=== PATIENT | female | born 1960 | race Caucasian/White ===

== ENCOUNTER 2024-10-06 07:58 | Inpatient (IN) | payer OTHER, SELFPAY ==
--- OUTSIDE RECORDS SUMMARY | 2024-10-06 08:00 | XMS_ITS | Encounter Summary ---
Author Organization [facility] Address [address] [place] [address] Care Team Providers Care Blade Boner Name Role Phone Rhoda Wilder M.D. Primary Care Provider [phone] Encounter Details Date Type Department Care Team (Late st Contact Info) Description 07/16/2018 [facility] [address] [place] [phone] Virginie Ortiz C.NJimP. [address] [place] [phone] Loss Weight (Primary Dx); Loss Weight Abnormal; Fracture Lumbar First Wedge Compression Closed Initial (HCC) Social History Tobacco Use Types Packs/Day Years Used Date Smoking Tobacco: Every Day Comments Unknown Sex and Gender Information Value Date Recorded Sex Assigned at Female 07/24/2018 12:46 PM SENIOR COST ANALYST Legal Sex Female 11:04 PM SENIOR COST ANALYST Gender Identity Female 07/24/2018 12:46 PM SENIOR COST ANALYST Sexual Orientation Straight 07/24/2018 12 :46 PM SENIOR COST ANALYST documented as of this encounter Plan of Treatment Upcoming Encounters Date Type Department Care Team (Latest Contact Info) Description 10/07/2024 8:00 AM SENIOR COST ANALYST Ancillary Procedure Department of Cardiovascular Diseases in [address] [phone] Fabian Gr M.D. [address] [place] [phone] Discharge Disposition: Home or Self Care 10/11/2024 12:45 PM SENIOR COST ANALYST Office Visit Department of Family Medicine, [facility], in [address] [phone] Fabian Gr M.D. [address] [place] [phone] Discharge Disposition: Home or Self Care documented as of this encounter Visit Diagnoses Diagnosis Loss Weight- Primary Loss Weight Abnormal Fracture Lumbar First Wedge Compression Closed Initial (HCC) documented in this encounter Additional Health Concerns Infection Onset Date Last Indicated Resolved Time COVID19 Pending 07/30/2020 07/30/2020 07/30/2020 1 :38 AM SENIOR COST ANALYST COVID19 Pending 07/30/2020 07/30/2020 07/30/2020 2 :04 AM SENIOR COST ANALYST COVID19 Pending 08/17/2020 08/17/2020 08/18/2020 1 2:59 PM SENIOR COST ANALYST COVID19 Pending 11/30/2020 11/30/2020 11/30/2020 1 0:10 PM CDT COVID19 Pending 12/07/2020 12/07/2020 12/07/2020 1 0:26 PM CDT COVID19 Pending 05/07/2021 05/07/2021 05/08/2021 7 :30 AM CDT COVID19 Pending 06/02/2022 06/02/2022 06/02/2022 1 0:52 PM CDT Assessment Noted Time PHQ-9 Depression Total Score: 7 07/10/20 12 1:30 PM CDT documented as of this encounter Care Teams Blade Boner Relationship Specialty Start Date End Date Rhoda Wilder M.D. [address] [place] [phone] PCP - General Family Medicine 06/05/22 documented as of this encounter
--- OUTSIDE RECORDS SUMMARY | 2024-10-06 08:00 | XMS_ITS ---
Author Organization [facility] Address [address] [place] [address] Care Team Providers Care Heel Washer Stringing Machine Operator Name Role Phone Unavailable Unavailable Unavailable Surgery Details Not on file Complications Check Surgery Details section. Procedure Estimated Blood Loss Check Surgery Details section. Procedure Findings Check Surgery Details section. Procedure Specimens Taken Check Surgery Details section.
--- OUTSIDE RECORDS SUMMARY | 2024-10-06 08:00 | XMS_ITS | Encounter Summary ---
Author Organization [facility] Address [address] [place] [address] Care Team Providers Care Chiller Operator Name Role Phone Rhoda Wilder M.D. Primary Care Provider Reason for Visit * Reason Comments Shortness of Breath Duoneb 1 dose given by [facility] before arrival. Encounter Details Date Type Department Care Team (Late st Contact Info) Description 10/06/2024 5:18 AM SHOE SEWING MACHINE OPERATOR AND TENDER - 10/06/2024 7:22 AM [facility] Emergency [facility] [address] [place] [phone] Jesus Meneses, P.A.-C. [address] [place] [phone] Chronic Obstructive Pulmonary Disease Exacerbation (HCC) (Primary Dx) Discharge Disposition: Home or Self Care Social History Tobacco Use Types Packs/Day Years Used Date Smoking Tobacco: Some Days Cigarettes Smokeless Tobacco: Never Tobacco Cessation:Ready to Q uit: Not Asked; Counseling Given: Not Answered Alcohol Use Standard Drinks/Week Comments Not Currently 0 (1 standard drink = 0.6 oz pur e alcohol) Nutrition Answer Date Recorded Nutrition: EVOO Fat Source 13 04/11 Nutrition: Servings of Fruits/Vegetables per Day Not on file 04/11/2020 Dental Answer Date Recorded Dental: Regular Dentist Unknown 11/16/19 21 Comments Unknown Sex and Gender Information Value Date Recorded Sex Assigned at Female 07/24/2018 12:46 PM SHOE SEWING MACHINE OPERATOR AND TENDER Legal Sex Female 11:04 PM SHOE SEWING MACHINE OPERATOR AND TENDER Gender Identity Female 07/24/2018 12:46 PM SHOE SEWING MACHINE OPERATOR AND TENDER Sexual Orientation Straight 07/24/2018 12 :46 PM SHOE SEWING MACHINE OPERATOR AND TENDER documented as of this encounter Last Filed Vital Signs Vital Sign Reading Time Taken Comments Blood Pressure 147/88 10/06/2024 6:30 AM SHOE SEWING MACHINE OPERATOR AND TENDER Pulse 83 10/06/2024 6:30 AM SHOE SEWING MACHINE OPERATOR AND TENDER Temperature 36.3 C (97.3 F) 10/06/2024 5:19 AM SHOE SEWING MACHINE OPERATOR AND TENDER Respiratory Rate 18 10/06/2024 5:42 AM SHOE SEWING MACHINE OPERATOR AND TENDER Oxygen Saturation 93% 10/06/2024 6:30 AM SHOE SEWING MACHINE OPERATOR AND TENDER Inhaled Oxygen Concentration - - Weight 40 kg (88 lb 2.9 oz) 10/06/2024 5:[address] Height - - Body Mass Index 16.58 08/19/2024 3:50 PM SHOE SEWING MACHINE OPERATOR AND TENDER documented in this encounter Discharge Instructions * Discharge Instructions* Jesus Meneses P.A.-C. - 10/06/2024 5:37 AM SHOE SEWING MACHINE OPERATOR AND TENDER You appear to have suffered from a COPD exacerbation. You are being placed on antibiotic and prednisone. Please continue to use your home medications as prescribed. Please follow up with your primarycare provider. Please return to the ER if new symptoms develop, current symptoms worsen, or you becomes concerned. SEWING MACHINE OPERATOR AND TENDER * Attachments The following attachments cannot be sent through Care Everywhere. * Chronic Obstructive Pulmonary Disease Exacerbation (Pashto) documented in this encounter Medications at Time of Discharge albuterol (Ventolin HFA) 90 mcg/actuation inhalerIndication s:Chronic Obstructive Pulmonary Disease (HCC) Inhale 1-2 puffs every 4 (four) hours as needed for wheezing. 54 g 3 07/28/2024 albuterol 2.5 mg /3 mL nebulizer solutionIndicatio ns:Chronic Obstructive Pulmonary Disease (HCC) Inhale 3 mL (2.5 mg total) by nebulization every 6 (six) hours as needed for wheezing or shortness of breath. 1080 mL 3 10/17/2023 budesonide (Pulmicort) 0.5 mg/2 mL nebulizer solution Inhale 2 mL (0.5 mg total) by nebulization 2 (two) times a day. 360 mL 3 08/19/2024 cyclobenzaprine (FlexeriL) 10 mg tabletIndications :Pain Low Back Unspecified,Pain Cervical Take 1 tablet (10 mg total) by mouth 3 (three) times a day. 270 tablet 08/19/2024 diphenhydrAMINE (BENADRYL) 25 mg tablet Take 1 tablet by mouth at bedtime. 05/30/2009 docusate sodium (COLACE) 100 mg capsuleIndication s:Constipation Take 1 capsule (100 mg total) by mouth daily. 90 capsule 3 05/29/2023 doxycycline monohydrate (Monodox) 100 mg capsuleIndication s:Chronic Obstructive Pulmonary Disease Exacerbation (HCC) Take 1 capsule (100 mg total) by mouth 2 (two) times a day before morning and evening meals for 7 days. 14 capsule 10/06/2024 5 gabapentin (NEURONTIN) 100 mg capsuleIndication s:Pain Low Back Unspecified,Pain Cervical take one capsule by mouth three times a day 270 capsule 3 10/17/2023 guaiFENesin (MUCINEX) 600 mg 12 hr tabletIndications :Chronic Obstructive Pulmonary Disease (HCC) Take 1 tablet (600 mg total) by mouth 2 (two) times a day. 180 tablet 3 05/29/2023 ibuprofen 600 mg tablet Take 1 tablet (600 mg total) by mouth every 6 (six) hours as needed for pain. 120 tablet 3 08/19/2024 5 ipratropium-albut Otis (DuoNeb) 0.5-2.5 mg/3 mL nebulizer solution Inhale 3 mL by nebulization 4 (four) times a day. 360 mL 11 08/19/2024 5 LORazepam (ATIVAN) 0.5 mg tablet Take 1 tablet by mouth at bedtime as needed. 03/02/2016 predniSONE (Deltasone) 20 mg tablet Take 1 tablet (20 mg total) by mouth daily for 5 days. 5 tablet 10/06/2024 5 rOPINIRole (Requip) 0.5 mg tablet Take 1 tablet (0.5 mg total) by mouth daily. 30 tablet 11 08/19/2024 5 documented as of this encounter ED Notes * Jesus Meneses P.A.-C. - 10/06/2024 6:51 AM CST SUBJECTIVE CHIEF COMPLAINT/REASON FOR VISIT Shortness of Breath (Duoneb 1 dose given by [facility] before arrival.) HISTORY OF PRESENT ILLNESS 64-year-old female presents ER via EMS with complaints of shortness of breath. Patient has history of COPD and had significant improvement after administration of DuoNeb by EMS in route. Patient states feeling improved after this treatment. She denies fever, chills, nausea, vomiting, diarrhea, chest pain, orthopnea, dyspnea on exertion. History provided by: Patient and EMS personnel REVIEW OF SYSTEMS All pertinent systems reviewed and are negative except as discussed in HPI OBJECTIVE Initial Vitals Temperature 10/06/24 0519 36.3 ??C Pulse Rate 10/06/24 0519 82 Heart Rate -- Resp Rate 10/06/24 0519 20 Blood Pressure 10/06/24 0519 (!) 182/95 SpO2 10/06/24 0519 100 % Pain Score 10/06/24 0521 7 PHYSICAL EXAMINATION Constitutional: Nursing note and vitals reviewed. HENT: Head: Normocephalic and atraumatic. Nose: Nose normal. Mouth/Throat: Oropharynx is clear and moist. Mucous membranes are moist. Neck: Neck supple. Cardiovascular: Normal rate, regular rhythm, S1 normal, S2 normal and normal heart sounds. Pulmonary/Chest: Effort normal. She has wheezes. Patient speaks in full sentences without labored respirations. She does have faint expiratory wheezes bilaterally. No respiratory distress. Abdominal: Soft. Bowel sounds are normal. There is no abdominal tenderness. Musculoskeletal: Cervical back: Neck supple. Neurological: Alert and oriented to person, place, and time. Skin: Skin is warm. ASSESSMENT/PLAN Assessment and Plan Patient appears well. She appears significantly improved after DuoNeb via EMS in route to our facility. She does have DuoNebs available at home. Patient is concerned that she is having more and more difficulties caring for herself at home. She is currently working with a behavioral health case manager to inquire about moving into a snf. Based on her clinical presentation at this time I do not have a medical reason to admit her to the hospital. This may change and we have discussed return ER warnings. I encouraged the patient and her daughter to continue to work with her behavioral health case manager to facilitate finding the best living situation for her. At this time she does appear safe to be discharged back to home. Patient's daughter says that her uncle he is on his way to pick her up from the emergency department.. I reviewed the following external records: office records, primary care records and prior outpatient labs. Final Diagnoses: as of 10/06/24 0651 Chronic Obstructive Pulmonary Disease Exacerbation (HCC) Jesus Meneses P.A.-C. 10/06/24 0654 SEWING MACHINE OPERATOR AND TENDER documented in this encounter Plan of Treatment Upcoming Encounters Date Type Department Care Team (Latest Contact Info) Description 10/07/2024 8:00 AM SHOE SEWING MACHINE OPERATOR AND TENDER Ancillary Procedure Department of Cardiovascular Diseases in [address] [phone] Fabian Gr M.D. [address] [place] [phone] Discharge Disposition: Home or Self Care 10/11/2024 12:45 PM SHOE SEWING MACHINE OPERATOR AND TENDER Office Visit Department of Family Medicine, [facility], in [address] [phone] Fabian Gr M.D. [address] [place] [phone] Discharge Disposition: Home or Self Care documented as of this encounter Visit Diagnoses Diagnosis Chronic Obstructive Pulmonary Disease Exacerbation (HCC)- Primary documented in this encounter Administered Medications Inactive Administered Medications - up to 3 most recent administrations Medication Order MAR Action Action Date Dose Rate Site dexAMETHasone tablet 10 mg (Decadron) 10 mg, oral, Once, On Fri10/06/24 at 0536, For 1 dose Given 10/06/2024 5:38 AM SHOE SEWING MACHINE OPERATOR AND TENDER 10 mg documented in this encounter Active and Recently Administered Medications Times are shown in SHOE SEWING MACHINE OPERATOR AND TENDER. Scheduled Medication Order 10/04/2024 10/05/2024 10/06/2024 dexAMETHasone tablet 10 mg (Decadron) (COMPLETED) 10 mg, oral, Once, On Fri10/06/24 at 0536, For 1 dose 0538 (Given - Provid er: Franklyn Santoro R.N.) documented in this encounter Additional Health Concerns Assessment Noted Time PHQ-9 Depression Total Score: 7 07/10/20 12 1:30 PM CDT documented as of this encounter Care Teams Chiller Operator Relationship Specialty Start Date End Date Rhoda Wilder M.D. [id number] [phone] PCP - General Family Medicine 06/05/22 documented as of this encounter
--- OUTSIDE RECORDS SUMMARY | 2024-10-06 08:00 | XMS_ITS | Referral Summary ---
Author Organization [facility] Address [address] [place] [address] Care Team Providers Care Feeder Operator Name Role Phone Rhoda Wilder M.D. Primary Care Provider [phone] Source Comments Patient records contain information from all sites at [facility]. For routine questions regarding patient records, call [phone] during business hours, M-F 8:00 AM - 5:00 PM Central Time. Record requests for emergency care only can be directed to [phone] at any time.[facility] Encounters Date Type Department Care Team Description 10/06/2024 5:18 AM NEWS CLERK - 10/06/2024 7:22 AM [facility] Emergency [place] [facility] [address] [place] [phone] Jesus Meneses, P.A.-C. Chronic Obstructive Pulmonary Disease Exacerbation (HCC) (Primary Dx) Discharge Disposition: Home or Self Care 08/19/2024 4:44 PM NEWS CLERK - 08/19/2024 11:59 PM NEWS CLERK Hospital Encounter Department of Laboratory Medicine in [address] [phone] Fabian Gr M.D. Chronic Diastolic (Congestive) Heart Failure (HCC); Tachycardia Supraventricular Paroxysmal (HCC) Discharge Disposition: Home or Self Care 08/19/2024 3:45 PM NEWS CLERK Office Visit Department of Family Medicine, [facility], in [address] [phone] Fabian Gr M.D. Chronic Respiratory Failure With Hypoxia (HCC) (Primary Dx); Chronic Obstructive Pulmonary Disease (HCC); Malnutrition Moderate Protein-Calorie (HCC); Arthritis Rheumatoid (HCC); Chronic Diastolic (Congestive) Heart Failure (HCC); Other Stimulant Abuse Uncomplicated (HCC); Tachycardia Supraventricular Paroxysmal (HCC); Pain Low Back Unspecified; Pain Cervical; Pain Teeth Discharge Disposition: Home or Self Care 07/28/2024 Refill Department of Family Medicine, [facility], [address] [phone] Rhoda Wilder M.D. Med Refill 07/28/2024 Refill Department of [facility], [facility], [address] [phone] Rhoda Wilder M.D. Med Refill from Last 3 Months Allergies Active Allergy Reactions Criticality Noted Date Comments Amitriptyline Other (see comments) 07/29/2020 Medications * This document contains information received from the source organization and may not represent a complete record from that organization. diphenhydrAMINE (BENADRYL) 25 mg tablet Take 1 tablet by mouth at bedtime. 9 Active LORazepam (ATIVAN) 0.5 mg tablet Take 1 tablet by mouth at bedtime as needed. 6 Active docusate sodium (COLACE) 100 mg capsuleIndicatio ns:Constipation Take 1 capsule (100 mg total) by mouth daily. 90 capsule 3 3 Active guaiFENesin (MUCINEX) 600 mg 12 hr tabletIndication s:Chronic Obstructive Pulmonary Disease (HCC) Take 1 tablet (600 mg total) by mouth 2 (two) times a day. 180 tablet 3 3 Active gabapentin (NEURONTIN) 100 mg capsuleIndicatio ns:Pain Low Back Unspecified,Pain Cervical take one capsule by mouth three times a day 270 capsule 3 4 Active albuterol 2.5 mg /3 mL nebulizer solutionIndicati ons:Chronic Obstructive Pulmonary Disease (HCC) Inhale 3 mL (2.5 mg total) by nebulization every 6 (six) hours as needed for wheezing or shortness of breath. 1080 mL 3 4 Active albuterol (Ventolin HFA) 90 mcg/actuation inhalerIndicatio ns:Chronic Obstructive Pulmonary Disease (HCC) Inhale 1-2 puffs every 4 (four) hours as needed for wheezing. 54 g 3 4 Active cyclobenzaprine (FlexeriL) 10 mg tabletIndication s:Pain Low Back Unspecified,Pain Cervical Take 1 tablet (10 mg total) by mouth 3 (three) times a day. 270 tablet 4 Active budesonide (Pulmicort) 0.5 mg/2 mL nebulizer solution Inhale 2 mL (0.5 mg total) by nebulization 2 (two) times a day. 360 mL 3 4 Active ibuprofen 600 mg tablet Take 1 tablet (600 mg total) by mouth every 6 (six) hours as needed for pain. 120 tablet 3 4 025 Active rOPINIRole (Requip) 0.5 mg tablet Take 1 tablet (0.5 mg total) by mouth daily. 30 tablet 11 4 025 Active ipratropium-albu teroL (DuoNeb) 0.5-2.5 mg/3 mL nebulizer solution Inhale 3 mL by nebulization 4 (four) times a day. 360 mL 11 4 025 Active predniSONE (Deltasone) 20 mg tablet Take 1 tablet (20 mg total) by mouth daily for 5 days. 5 tablet 5 025 Active doxycycline monohydrate (Monodox) 100 mg capsuleIndicatio ns:Chronic Obstructive Pulmonary Disease Exacerbation (HCC) Take 1 capsule (100 mg total) by mouth 2 (two) times a day before morning and evening meals for 7 days. 14 capsule 5 025 Active Active Problems Problem Noted Date Diagnosed Date Appendectomy Status Post 05/29/2023 Arthritis Rheumatoid 05/29/2023 Nodule Pulmonary Solitary 05/29/2023 Malnutrition Moderate Protein-Calorie 05/29/2023 Tachycardia Supraventricular Paroxysmal 05/29/20 23 Chronic Diastolic (Congestive) Heart Failure Other Stimulant Abuse Uncomplicated 05/29/2023 Tonsillectomy Status Post 05/29/2023 Anxiety 05/29/2023 Hysterectomy Status Post 05/29/2023 Chronic Respiratory Failure With Hypoxia 023 Macrocytosis 05/29/2023 Hyperglycemia 07/30/2020 Leukocytosis 07/29/2020 Hypercapnia 07/29/2020 Pain Cervical 02/26/2018 Spondylolysis Acquired 01/05/2018 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 Gastroesophageal Reflux Disease Without Esophagi tis 03/31/2017 Osteoarthritis 10/21/2016 Adjustment Disorder 11/16/2015 Pain Low Back Unspecified 09/20/2015 Myalgia 03/03/2015 Chronic Obstructive Pulmonary Disease 01/25/2014 Overview (07/29/2020): Emphysema NOS Smoking Tobacco Use Personal History 07/10/2012 Overview (07/29/2020): date of onset unknown, smokes 1/ ppd Fibromyalgia 01/23/2012 Hemorrhoids Internal 06/15/2010 Restless Leg Syndrome 03/13/2010 Hepatitis C 08/28/2009 Abuse Tobacco Smoking 05/30/2009 Asthma Exercise Induced Bronchospasm 05/23/2003 Resolved Problems Problem Noted Date Diagnosed Date Resolved Date Tobacco Use 05/29/2023 05/29/2023 Chronic Obstructive Pulmonar y Disease Exacerbation 07/30/2020 05/29/2023 Respiratory Failure With Hypoxia 07/29/2020 07/30/2020 Tachypnea 07/29/2020 05/29/2023 Shortness Of Breath 07/29/2020 05/29/20 23 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 Cough Unspecified Type 06/24/201405/29 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 09/12/2021 Hysterectomy Non Malignant Status Post 08/04/2007 05/29/2023 Hepatitis C 01/20/2004 05/29/2023 Overview (07/29/2020): Chronic hepatitis C Immunizations Immunization Administration Dates Next Due H1N1 All Forms 08/28/2009 HepA Adult 05/29/2023 Influenza, Seasonal, Injectable 06/25/2016 PCV20 05/29/2023 Td Preservative Free (TENIVA C, DECAVAC) 09/15/1997 Td, (Adult) Unspecified 09/15/1997 Tdap 06/24/2014,03/08/2011 influenza trivalent vaccine (6 months and older)(PF) 07/13/2013,10/16/2012,09/11/2011,2009 influenza vaccine quad (FLUZONE/FLUARIX) (6 months and older)(PF) 07/30/2020,05/29/2017,09/20/2015 Social History Tobacco Use Types Packs/Day Years [...] Sex Assigned at Female 07/24/2018 12:46 PM NEWS CLERK Legal Sex Female 11:04 PM NEWS CLERK Gender Identity Female 07/24/2018 12:46 PM NEWS CLERK Sexual Orientation Straight 07/24/2018 12 :46 PM NEWS CLERK Last Filed Vital Signs Vital Sign Reading Time Taken Comments Blood Pressure 147/88 10/06/2024 6:30 AM NEWS CLERK Pulse 83 10/06/2024 6:30 AM NEWS CLERK Temperature 36.3 C (97.3 F) 10/06/2024 5:19 AM NEWS CLERK Respiratory Rate 18 10/06/2024 5:42 AM NEWS CLERK Oxygen Saturation 93% 10/06/2024 6:30 AM NEWS CLERK Inhaled Oxygen Concentration - - Weight 40 kg (88 lb 2.9 oz) 10/06/2024 5:[address] Height 155.3 cm (5' 1.14) 08/19/2024 3:50 PM CS T Body Mass Index 16.58 08/19/2024 3:50 PM NEWS CLERK Plan of Treatment Upcoming Encounters Date Type Department Care Team (Latest Contact Info) Description 10/07/2024 8:00 AM NEWS CLERK Ancillary Procedure Department of Cardiovascular Diseases in [address] [phone] Fabian Gr M.D. [address] [place] [phone] Discharge Disposition: Home or Self Care 10/11/2024 12:45 PM NEWS CLERK Office Visit Department of Family Medicine, [facility], in [address] [phone] Fabian Gr M.D. [address] [place] [phone] Discharge Disposition: Home or Self Care Procedures Procedure Name Priority Date/Time Associated Diagnosis Comments THYROID-STIMULATING HORMONE-SENSITIVE (S-TSH) Routine 08/19/2024 4:51 PM NEWS CLERK Tachycardia Supraventricular Paroxysmal (HCC) COMPREHENSIVE METABOLIC PANEL, S/P Routine 08/19/2024 4:51 PM NEWS CLERK Chronic Diastolic (Congestive) Heart Failure (HCC) CBC WITH DIFFERENTIAL, B Routine 08/19/2024 4:51 PM NEWS CLERK Chronic Diastolic (Congestive) Heart Failure (HCC) BI BREAST SCREENING BILATERAL WITH TOMOSYNTHESIS RAD - Routine (most inpatients and all outpatients) 12/31/2021 1:34 PM CDT Screening Mammogram Breast Cancer LIPID PANEL, S Routine 09/12/2021 3:04 PM NEWS CLERK Chronic Obstructive Pulmonary Disease Exacerbation (HCC) Cough Unspecified Type Screening Lipid from Last 3 Months or Most Recently Relevant to Health Maintenance Results * (ABNORMAL) CBC with Differential, Blood (08/19/2024 4:51 PM NEWS CLERK) Hemoglobin 13.7 11.6 - 15.0 g/dL 08/19/2024 5:24 PM NEWS CLERK CNFL Hematocrit 44.0 35.5 - 44.9 % 08/19/2024 5:24 PM NEWS CLERK [facility] Erythrocytes 4.45 3.92 - 5.13 x10(12)/L 08/19/2024 5:24 PM NEWS CLERK CN[facility] MCV 98.9(H) 78.2 - 97.9 fL 08/19/2024 5:24 PM NEWS CLERK CN[facility] RBC Distrib Width 12.1(L) 12.2 - 16.1 % 08/19/2024 5:24 PM NEWS CLERK CN[facility] Platelet Count 223 157 - 371 x10(9)/L 08/19/2024 5:24 PM NEWS CLERK CN[facility] Leukocytes 7.8 3.4 - 9.6 x10(9)/L 08/19/2024 5:24 PM NEWS CLERK CN[facility] Neutrophils 4.67 1.56 - 6.45 x10(9)/L 08/19/2024 5:24 PM NEWS CLERK CN[facility] Lymphocytes 1.90 0.95 - 3.07 x10(9)/L 08/19/2024 5:24 PM NEWS CLERK CN[facility] Monocytes 0.66 0.26 - 0.81 x10(9)/L 08/19/2024 5:24 PM NEWS CLERK CNFL Eosinophils 0.53(H) 0.03 - 0.48 x10(9)/L 08/19/2024 5:24 PM NEWS CLERK CN[facility] Basophils 0.05 0.01 - 0.08 x10(9)/L 08/19/2024 5:24 PM NEWS CLERK CN[facility] Blood (Blood, Venous) 08/19/2024 4:51 PM NEWS CLERK 08/19/2024 4:53 PM NEWS CLERK us Fabian Gr M.D. LAB BLOOD ADD-ON Final Re sult [facility] [address] [place] [phone], [facility] in [address] [address] * S-TSH (Thyroid-Stimulating Hormone - Sensitive) (08/19/2024 4:51 PM NEWS CLERK) [facility] TSH, Sensitive 2.2 0.3 - 4.2 mIU/L 08/19/2024 5:22 PM NEWS CLERK CN[facility] Blood (Blood, Venous) 08/19/2024 4:51 PM NEWS CLERK 08/19/2024 4:53 PM NEWS CLERK us Fabian Gr M.D. LAB BLOOD ADD-ON Final Re sult [facility] [address] [place] [phone], [facility] CN[facility] in [address] [address] * (ABNORMAL) Comprehensive Metabolic Panel (08/19/2024 4:51 PM NEWS CLERK) Potassium, P 3.8 3.6 - 5.2 mmol/L 08/19/2024 5:11 PM NEWS CLERK CNFL Sodium, P 137 135 - 145 mmol/L 08/19/2024 5:11 PM NEWS CLERK CNFL Chloride, P 94(L) 98 - 107 mmol/L 08/19/2024 5:11 PM NEWS CLERK CN[facility] Bicarbonate, P 37(H) 22 - 29 mmol/L 08/19/2024 5:11 PM NEWS CLERK CN[facility] Anion Gap, P 6(L) 7 - 15 08/19/2024 5:11 PM NEWS CLERK CN[facility] BUN (Blood Urea Nitrogen), P 10 6 - 21 mg/dL 08/19/2024 5:11 PM NEWS CLERK CNFL Creatinine 0.45(L) 0.59 - 1.04 mg/dL 08/19/2024 5:11 PM NEWS CLERK CN[facility] Estimated GFR (eGFR) >90 >=60 mL/min/BS A 08/19/2024 5:11 PM NEWS CLERK CNFL Comment: Estimated GFR calculated using the 2020 CKD_EPI creatinine equation. Calcium, Total, P 9.5 8.8 - 10.2 mg/dL 08/19/2024 5:11 PM NEWS CLERK CNFL Glucose, P 158(H) 70 - 140 mg/dL 08/19/2024 5:11 PM NEWS CLERK CN[facility] Protein, Total, P 7.5 6.3 - 7.9 g/dL 08/19/2024 5:11 PM NEWS CLERK CNFL Albumin, P 4.2 3.5 - 5.0 g/dL 08/19/2024 5:11 PM NEWS CLERK CNFL Aspartate Aminotransferase (AST), P 22 8 - 43 U/L 08/19/2024 5:11 PM NEWS CLERK CNFL Alkaline Phosphatase, P 88 35 - 104 U/L 08/19/2024 5:11 PM NEWS CLERK CNFL Alanine Aminotransferase (ALT), P 20 7 - 45 U/L 08/19/2024 5:11 PM NEWS CLERK CN[facility] Bilirubin, Total, P <0.2 0.0 - 1.2 mg/dL 08/19/2024 5:11 PM NEWS CLERK CN[facility] Blood (Blood, Venous) 08/19/2024 4:51 PM NEWS CLERK 08/19/2024 4:53 PM NEWS CLERK us Fabian Gr M.D. LAB BLOOD ADD-ON Final Re sult Performing Organization Address City/State/[facility] Co de Phone Number [facility] [address] [place] [phone], [facility] CN[facility] in [address] [address] * BI Breast Screening Bilateral with Tomosynthesis (12/31/2021 1:34 PM CDT) Anatomical Region Laterality Modality Breast, Breast Imaging RST L OS, Breast Imaging ARZ LOS, Breast Imaging FLA LOS Bilateral Mammography 12/31/2021 4:01 PM CDT Impressions 12/31/2021 4:05 PM CDT Negative. RECOMMENDATION: Annual Screening Mammogram ASSESSMENT: BI-RADS: 1: Negative. Narrative 12/31/2021 4:05 PM CDT EXAM: BI BREAST SCREENING BILATERAL WITH TOMOSYNTHESIS Current study was evaluated with a Computer Aided Detection (CAD) system. INDICATION: Screening mammogram. COMPARISON: Prior exam(s) were available and reviewed for comparison. DENSITY: b. There are scattered areas of fibroglandular density. FINDINGS: No mammographic findings of malignancy. Procedure Note Manuel Montiel M.D. - 12/31/2021 EXAM: BI BREAST SCREENING BILATERAL WITH TOMOSYNTHESIS Current study was evaluated with a Computer Aided Detection (CAD) system. INDICATION: Screening mammogram. COMPARISON: Prior exam(s) were available and reviewed for comparison. DENSITY: b. There are scattered areas of fibroglandular density. FINDINGS: No mammographic findings of malignancy. IMPRESSION: Negative. RECOMMENDATION: Annual Screening Mammogram ASSESSMENT: BI-RADS: 1: Negative. us Nena Wood IMG BI PROCEDURES Final Resu lt * (ABNORMAL) Lipid Panel (09/12/2021 3:04 PM NEWS CLERK) Cholesterol, Total 229(H) mg/dL 2020 3:42 PM NEWS CLERK CNFL Comment: ----REFERENCE VALUE---- Desirable: < 200 Borderline high: 200 - 239 High: > or = 240 Triglycerides 77 mg/dL 09/12/2021 3:42 PM NEWS CLERK CNFL Comment: ----REFERENCE VALUE---- Normal: <150 Borderline high: 150-199 High: 200-499 Very high: > or =500 Cholesterol, HDL 143 >=50 mg/dL 09/12/20 4:32 PM NEWS CLERK CNFL Calculated LDL 71 mg/dL 09/12/2021 4:32 PM NEWS CLERK CNFL Comment: ----REFERENCE VALUE---- Desirable: <100 mg/dL Above Desirable: 100-129 mg/dL Borderline High: 130-159 mg/dL High: 160-189 mg/dL Very High: >=190 mg/dL Cholesterol, Non-HDL, Calculated 86 mg/dL 09/12/2021 4:32 PM NEWS CLERK CNFL Comment: ----REFERENCE VALUE---- Desirable: <130 Above Desirable: 130-159 Borderline high: 160-189 High: 190-219 Very high: > or =220 Blood (Blood, Venous) 09/12/2021 3:04 PM NEWS CLERK 09/12/2021 3:06 PM NEWS CLERK us Nena Wood LAB BLOOD ADD-ON Final Resul t [facility] [address] [place] [phone], [facility] [place] [address] [place] Reyna [address] from Last 3 Months or Most Recently Relevant to Health Maintenance Insurance [facility] [place] [address] [place] [address] Advance Directives For more information, please contact: [phone] * Full Code (Latest Code Status on File) Date Activated Date Inactivated Comments 07/30/2020 12:51 AM 07/30/2020 6:22 PM Question Answer Comments Full Code: Discussed Care Teams Feeder Operator Relationship Specialty Start Date End Date Rhoda Wilder M.D. [address] [place], [place] [address]D[place]Y Toribio [phone] PCP - General Family Medicine 06/05/22
--- OUTSIDE RECORDS SUMMARY | 2024-10-06 08:00 | XMS_ITS | Encounter Summary ---
Author Organization [facility] Address [address] [place] [address] Care Team Providers Care Roller Helper Name Role Phone Rhoda Wilder M.D. Primary Care Provider [phone] Encounter Details Date Type Department Care Team (Late st Contact Info) Description 09/18/[address] [facility] [address] [place] [phone] Virginie Ortiz C.NJimP. [address] [place] [phone] Fracture Lumbar First Wedge Compression Closed Initial (HCC) (Primary Dx); Loss Weight Social History Tobacco Use Types Packs/Day Years Used Date Smoking Tobacco: Every Day Comments Unknown Sex and Gender Information Value Date Recorded Sex Assigned at Female 07/24/2018 12:46 PM POLE SHAVER Legal Sex Female 11:04 PM POLE SHAVER Gender Identity Female 07/24/2018 12:46 PM POLE SHAVER Sexual Orientation Straight 07/24/2018 12 :46 PM POLE SHAVER documented as of this encounter Plan of Treatment Upcoming Encounters Date Type Department Care Team (Latest Contact Info) Description 10/07/2024 8:00 AM POLE SHAVER Ancillary Procedure Department of Cardiovascular Diseases in [address] [phone] Fabian Gr M.D. [address] [place] [phone] Discharge Disposition: Home or Self Care 10/11/2024 12:45 PM POLE SHAVER Office Visit Department of Family Medicine, [facility], in [address] [phone] Fabian Gr M.D. [address] [place] [phone] Discharge Disposition: Home or Self Care documented as of this encounter Visit Diagnoses Diagnosis Fracture Lumbar First Wedge Compression Closed Initial (HCC)- Primary Loss Weight documented in this encounter Additional Health Concerns Infection Onset Date Last Indicated Resolved Time COVID19 Pending 07/30/2020 07/30/2020 07/30/2020 1 :38 AM POLE SHAVER COVID19 Pending 07/30/2020 07/30/2020 07/30/2020 2 :04 AM POLE SHAVER COVID19 Pending 08/17/2020 08/17/2020 08/18/2020 1 2:59 PM POLE SHAVER COVID19 Pending 11/30/2020 11/30/2020 11/30/2020 1 0:10 PM CDT COVID19 Pending 12/07/2020 12/07/2020 12/07/2020 1 0:26 PM CDT COVID19 Pending 05/07/2021 05/07/2021 05/08/2021 7 :30 AM CDT COVID19 Pending 06/02/2022 06/02/2022 06/02/2022 1 0:52 PM CDT Assessment Noted Time PHQ-9 Depression Total Score: 7 07/10/20 12 1:30 PM CDT documented as of this encounter Care Teams Roller Helper Relationship Specialty Start Date End Date Rhoda Wilder M.D. [address] [place] [phone] PCP - General Family Medicine 06/05/22 documented as of this encounter
--- OUTSIDE RECORDS SUMMARY | 2024-10-06 08:00 | XMS_ITS | Clinical Summary ---
Author Organization [facility] Address [address] [place] [address] Care Team Providers Care Clinical Education Assistant Name Role Phone Stephen Reyes MD Primary Care Provider [phone] Source Comments If you need additional information that is not available on Care Everywhere, please contact our Medical Records Department during business hours (Friday - Friday, 8 am - 5 pm) at . During nonbusiness hours, please contact our Trauma and Emergency Center at .[facility] Allergies No known active allergies Medications * Medications may not be up to date as of this document. Always verify current medications with the patient. hydroxychloroqui ne (PLAQUENIL-EQUIV ALENT) 200 mg tablet Take 1 Tab (200 mg) by mouth daily. 90 Tab 4 05/26/2015 Active Active Problems Problem Noted Date Diagnosed Date HCV (hepatitis C virus) s/p IFN and ribavirin Social History Tobacco Use Types Packs/Day Years Used Date Smoking Tobacco: Never Assessed Comments Unknown Sex and Gender Information Value Date Recorded Sex Assigned at Not on file Legal Sex Female 1:26 PM CDT Gender Identity Not on file Sexual Orientation Not on file Plan of Treatment Health Maintenance Due Date Last Done Comments HEPATITIS C SCREENING 1960 DEPRESSION/ANXIETY PHQ4 1972 CERVICAL CANCER SCREENING 1978 LIPID SCREEN 1978 WELLNESS VISIT 1978 DTaP/Tdap/Td Vaccine (1 - Tdap) 1979 PERTUSSIS 1979 MAMMOGRAM 2000 COLONOSCOPY 2005 DIABETES SCREENING 2005 Pneumococcal Vaccine: 50+ Ye ars (1 of 1 - PCV) 2010 SHINGLES VACCINE (SHINGRIX) (1 of 2) 2010 COVID-19 Vaccine (1 - 2023-2 5 season) 2024 Influenza Vaccine (#1) 2024 RSV Vaccines (1 - 1-dose 75+ series) 2035 HPV Vaccine Aged Out No longer eligi ble based on patient's age to complete this topic Hepatitis B Vaccine Aged Out No longe r eligible based on patient's age to complete this topic POLIO (IPV) Vaccine Aged Out No longe r eligible based on patient's age to complete this topic Pneumococcal Vaccine: Pediat rics (0 to 5 Years) and At-Risk Patients (6 to 49 Years) Aged Out No longer eligi ble based on patient's age to complete this topic Insurance [facility] Care Teams Clinical Education Assistant Relationship Specialty Start Date End Date Stephen Reyes MD PCP - General FAMILY MEDICINE 05/27/14
--- OUTSIDE RECORDS SUMMARY | 2024-10-06 08:00 | XMS_ITS | Clinical Summary ---
Author Organization [facility] Address [address] [place] [address] Care Team Providers Care Insurance Consultant Name Role Phone Rhoda Wilder M.D. Primary Care Provider [phone] Source Comments Patient records contain information from all sites at [facility]. For routine questions regarding patient records, call [phone] during business hours, M-F 8:00 AM - 5:00 PM Central Time. Record requests for emergency care only can be directed to [phone] at any time.[facility] Allergies Active Allergy Reactions Criticality Noted Date [...] Overview (07/29/2020): date of onset unknown, smokes 1/2 ppd Fibromyalgia 01/23/2012 Hemorrhoids Internal 06/15/2010 Restless [...] 01/20/2004 05/29/2023 Overview (07/29/2020): Chronic hepatitis C Encounters Date Type Department Care Team Description 10/06/2024 5:18 AM [facility] - 10/06/2024 7:22 AM [facility] Emergency [facility] [address] [place] [phone] Jesus Meneses P.A.-C. Chronic Obstructive Pulmonary Disease Exacerbation (HCC) (Primary Dx) Discharge Disposition: Home or Self Care 08/19/2024 4:44 PM [facility]LE [facility]LER - 08/19/2024 11:59 PM [facility] Hospital Encounter Department of Laboratory Medicine in [address] [phone] Fabian Gr M.D. Chronic Diastolic (Congestive) Heart Failure (HCC); Tachycardia Supraventricular Paroxysmal (HCC) Discharge Disposition: Home or Self Care 08/19/2024 3:45 PM [facility] Office Visit Department of Family [facility], [facility], in [address] [phone] Fabian Gr M.D. Chronic Respiratory Failure With Hypoxia (HCC) (Primary Dx); Chronic Obstructive Pulmonary Disease (HCC); Malnutrition Moderate Protein-Calorie (HCC); Arthritis Rheumatoid (HCC); Chronic Diastolic (Congestive) Heart Failure (HCC); Other Stimulant Abuse Uncomplicated (HCC); Tachycardia Supraventricular Paroxysmal (HCC); Pain Low Back Unspecified; Pain Cervical; Pain Teeth Discharge Disposition: Home or Self Care 07/28/2024 Refill Department of Family Medicine, [facility], in [address] [phone] Rhoda Wilder M.D. Med Refill 07/28/2024 Refill Department of Family Medicine, [facility], [address] [phone] Rhoda Wilder M.D. Med Refill from Last 3 Months Immunizations Immunization Administration Dates Next Due H1N1 All Forms 08/28/2009 HepA Adult 05/29/2023 Influenza, Seasonal, Injectable 06/25/2016 PCV20 05/29/2023 Td Preservative Free (TENIVA C, DECAVAC) 09/15/1997 Td, (Adult) Unspecified 09/15/1997 Tdap 06/24/2014,03/08/2011 influenza trivalent vaccine (6 months and older)(PF) 07/13/2013,10/16/2012,09/11/2011,2009 influenza vaccine quad (FLUZONE/FLUARIX) (6 months and older)(PF) 07/30/2020,05/29/2017,09/20/2015 Family History Medical History Relation Name Comments Cancer Father liver cancer du e to ETOH Breast cancer Father's Sister Relation Name Status Comments Father Father's Sister Social History Tobacco Use Types Packs/Day Years [...] Sex Assigned at Female 07/24/2018 12:46 PM [facility]ER Legal Sex Female 11:04 PM [facility] Gender Identity Female 07/24/2018 12:46 PM [facility] Sexual Orientation Straight 07/24/2018 12 :46 PM [facility] Last Filed Vital Signs Vital Sign Reading Time Taken Comments Blood Pressure 147/88 10/06/2024 6:30 AM [facility] Pulse 83 10/06/2024 6:30 AM [facility] Temperature 36.3 C (97.3 F) 10/06/2024 5:19 AM [facility]ER Respiratory Rate 18 10/06/2024 5:42 AM [facility]ER Oxygen Saturation 93% 10/06/2024 6:30 AM [facility] Inhaled Oxygen Concentration - - Weight 40 kg (88 lb 2.9 oz) 10/06/2024 5:[address] Height 155.3 cm (5' 1.14) 08/19/2024 3:50 PM CS T Body Mass Index 16.58 08/19/2024 3:50 PM [facility]ER Plan of Treatment Upcoming Encounters Date Type Department Care Team (Latest Contact Info) Description 10/07/2024 8:00 AM [facility] Ancillary Procedure Department of Cardiovascular Diseases in [address] [phone] Fabian Gr M.D. [address] [place] [phone] Discharge Disposition: Home or Self Care 10/11/2024 12:45 PM [facility] Office Visit Department of Family Medicine, [facility], in [address] [phone] Fabian Gr M.D. [address] [place] [phone] Discharge Disposition: Home or Self Care Health Maintenance Due Date Last Done Comments CT Colonography 1960 Cologuard 1960 FIT 1960 HIV Screening 1960 Tobacco Cessation counseling 1960 Zoster Vaccines (1 of 2) 2010 Hepatitis B Vaccines (1 of 3 - Risk 3-dose series) 2020 RSV vaccine - (32-36 weeks) or 60+ years (1 - Risk 60-74 years 1-dose series) 2020 Mammogram 12/31/2022 12/31/2021, 06/0 12/2014, 03/06/2001 Hepatitis A Vaccines (2 of 2 - Risk 2-dose series) 11/27/2023 05/29/2023 Colonoscopy 01/14/2024 01/13/2014 Colorectal Cancer Screening 01/14/2024 COVID-19 Vaccine ( season) 2024 Influenza Vaccine (#1) 2024 , 05/29/2017, 06/25/2016, Additional history exists DTaP,Tdap,and Td Vaccines (3 - Td or Tdap) 06/24/2024 06/24/2014, 03/08/2011, 09/15/1997, Additional history exists Depression Screening (Annual PHQ-2) 09/15/2024 Fasting Glucose for Diabetes Screening 08/19/2025 08/19/2024, 01/25/2024, 05/29/2023, Additional history exists Lipid (Cholesterol) Screening 09/12/2026 09/12/2021 Pneumococcal vaccine (50+ years) Completed 05/29/2023 IPV Vaccines Aged Out No longer eligi ble based on patient's age to complete this topic Procedures Procedure Name Priority Date/Time Associated Diagnosis Comments THYROID-STIMULATING HORMONE-SENSITIVE (S-TSH) Routine 08/19/2024 4:51 PM [facility] Tachycardia Supraventricular Paroxysmal (HCC) COMPREHENSIVE METABOLIC PANEL, S/P Routine 08/19/2024 4:51 PM [facility] Chronic Diastolic (Congestive) Heart Failure (HCC) CBC WITH DIFFERENTIAL, B Routine 08/19/2024 4:51 PM [facility] Chronic Diastolic (Congestive) Heart Failure (HCC) BI BREAST SCREENING BILATERAL WITH TOMOSYNTHESIS RAD - Routine (most inpatients and all outpatients) 12/31/2021 1:34 PM CDT Screening Mammogram Breast Cancer LIPID PANEL, S Routine 09/12/2021 3:04 PM [facility] Chronic Obstructive Pulmonary Disease Exacerbation (HCC) Cough Unspecified Type Screening Lipid from Last 3 Months or Most Recently Relevant to Health Maintenance Results * (ABNORMAL) CBC with Differential, Blood (08/19/2024 4:51 PM [facility]ER) Hemoglobin 13.7 11.6 - 15.0 g/dL 08/19/2024 5:24 PM [facility] Hematocrit 44.0 35.5 - 44.9 % 08/19/2024 5:24 PM [facility] Erythrocytes 4.45 3.92 - 5.13 x10(12)/L 08/19/2024 5:24 PM [facility] MCV 98.9(H) 78.2 - 97.9 fL 08/19/2024 5:24 PM [facility] RBC Distrib Width 12.1(L) 12.2 - 16.1 % 08/19/2024 5:24 PM [facility] Platelet Count 223 157 - 371 x10(9)/L 08/19/2024 5:24 PM [facility] Leukocytes 7.8 3.4 - 9.6 x10(9)/L 08/19/2024 5:24 PM [facility] CNFL Neutrophils 4.67 1.56 - 6.45 x10(9)/L 08/19/2024 5:24 PM [facility] Lymphocytes 1.90 0.95 - 3.07 x10(9)/L 08/19/2024 5:24 PM [facility] CNFL Monocytes 0.66 0.26 - 0.81 x10(9)/L 08/19/2024 5:24 PM [facility] CNFL Eosinophils 0.53(H) 0.03 - 0.48 x10(9)/L 08/19/2024 5:24 PM [facility] CNFL Basophils 0.05 0.01 - 0.08 x10(9)/L 08/19/2024 5:24 PM [facility] CN[facility] Blood (Blood, Venous) 08/19/2024 4:51 PM [facility]ER 08/19/2024 4:53 PM [facility]ER us Fabian Gr M.D. LAB BLOOD ADD-ON Final Re sult [facility] [address] [place] [address], [facility] [place] [address] * S-TSH (Thyroid-Stimulating Hormone - Sensitive) (08/19/2024 4:51 PM LADLE HANDLER) TSH, Sensitive 2.2 0.3 - 4.2 mIU/L 08/19/2024 5:22 PM [facility] Blood (Blood, Venous) 08/19/2024 4:51 PM [facility]ER 08/19/2024 4:53 PM [facility]ER us Fabian Gr M.D. LAB BLOOD ADD-ON Final Re sult [facility] [address] [place] [phone], [facility] in [address] [address] * (ABNORMAL) Comprehensive Metabolic Panel (08/19/2024 4:51 PM LADLE HANDLER) Potassium, P 3.8 3.6 - 5.2 mmol/L 08/19/2024 5:11 PM [facility]FL Sodium, P 137 135 - 145 mmol/L 08/19/2024 5:11 PM [facility] CNFL Chloride, P 94(L) 98 - 107 mmol/L 08/19/2024 5:11 PM [facility] Bicarbonate, P 37(H) 22 - 29 mmol/L 08/19/2024 5:11 PM [facility] Anion Gap, P 6(L) 7 - 15 08/19/2024 5:11 PM [facility] BUN (Blood Urea Nitrogen), P 10 6 - 21 mg/dL 08/19/2024 5:11 PM [facility] CNFL Creatinine 0.45(L) 0.59 - 1.04 mg/dL 08/19/2024 5:11 PM [facility] Estimated GFR (eGFR) >90 >=60 mL/min/BS A 08/19/2024 5:11 PM [facility] Comment: Estimated GFR calculated using the 2020 CKD_EPI creatinine equation. Calcium, Total, P 9.5 8.8 - 10.2 mg/dL 08/19/2024 5:11 PM [facility] Glucose, P 158(H) 70 - 140 mg/dL 08/19/2024 5:11 PM [facility] CNFL Protein, Total, P 7.5 6.3 - 7.9 g/dL 08/19/2024 5:11 PM [facility] CNFL Albumin, P 4.2 3.5 - 5.0 g/dL 08/19/2024 5:11 PM [facility] Aspartate Aminotransferase (AST), P 22 8 - 43 U/L 08/19/2024 5:11 PM [facility] Alkaline Phosphatase, P 88 35 - 104 U/L 08/19/2024 5:11 PM [facility] Alanine Aminotransferase (ALT), P 20 7 - 45 U/L 08/19/2024 5:11 PM [facility] CN[facility] Bilirubin, Total, P <0.2 0.0 - 1.2 mg/dL 08/19/2024 5:11 PM [facility] CN[facility] Blood (Blood, Venous) 08/19/2024 4:51 PM [facility]ER 08/19/2024 4:53 PM [facility]ER us Fabian Gr M.D. LAB BLOOD ADD-ON Final Re sult [facility] [address] [place] [id number], [facility] in [address] [address] * BI Breast Screening Bilateral with Tomosynthesis [...] Annual Screening Mammogram ASSESSMENT: BI-RADS: 1: Negative. Nena Wood IMG BI PROCEDURES Final Resu lt * (ABNORMAL) Lipid Panel (09/12/2021 3:04 PM [facility] HANDLER) Cholesterol, Total 229(H) mg/dL 2020 3:42 PM [facility] Comment: ----REFERENCE VALUE---- Desirable: < 200 Borderline high: 200 - 239 High: > or = 240 Triglycerides 77 mg/dL 09/12/2021 3:42 PM [facility] Comment: ----REFERENCE VALUE---- Normal: <150 Borderline high: 150-199 High: 200-499 Very high: > or =500 Cholesterol, HDL 143 >=50 mg/dL 09/12/20 4:32 PM [facility] CNFL Calculated LDL 71 mg/dL 09/12/2021 4:32 PM [facility] CNFL Comment: ----REFERENCE VALUE---- Desirable: <100 mg/dL Above Desirable: 100-129 mg/dL Borderline High: 130-159 mg/dL High: 160-189 mg/dL Very High: >=190 mg/dL Cholesterol, Non-HDL, Calculated 86 mg/dL 09/12/2021 4:32 PM [facility] Comment: ----REFERENCE VALUE---- Desirable: <130 Above Desirable: 130-159 Borderline high: 160-189 High: 190-219 Very high: > or =220 Blood (Blood, Venous) 09/12/2021 3:04 PM LADLE HANDLER 09/12/2021 3:06 PM LADLE HANDLER Nena Wood LAB BLOOD ADD-ON Final Resul t [facility] [address] [place] [id number], [facility] in [address] [address] from Last 3 Months or Most Recently Relevant to Health Maintenance Insurance [facility] [place] [id number] DUSTY WOODS [id number] Advance Directives For more information, please contact: [phone] * Full Code (Latest Code Status on File) Date Activated Date Inactivated Comments 07/30/2020 12:51 AM 07/30/2020 6:22 PM Question Answer Comments Full Code: Discussed Care Teams Insurance Consultant Relationship Specialty Start Date End Date Rhoda Wilder M.D. [address] [place] [address] DUSTY Reyna [phone] PCP - General Family Medicine 06/05/22
--- OUTSIDE RECORDS SUMMARY | 2024-10-06 08:01 | XMS_ITS | Continuity of Care Document ---
Author Organization [facility] Address [address] [place] [address] Phone Care Team Providers Care Merchandise Adjustment Clerk Name Role Phone No Information Unavailable Unavailable Advance Directives Directive Yes / No Effective Date File Name No Information Encounters Encounter Description Practice Location Reason(s) For Visit Diagnoses Date Provider Providers Copied on Encounter [facility], [address], [place], [address], [place] tel:[phone] No Information [phone] No Information Family History Family Member Type Diagnosis Age At Onset No Information Payers Payer name Insurance type Covered alliance party ID Authoriza mastersergio(s) [place] [employer] Insurance [id number] Social History Type Description Quantity Date Captured Comments Sex Female Smoking Status No Information Chief Complaint And Reason For Visit No Information Reason For Referral Reason For Referral No Information History Of Present Illness Encounter Date Complaint History Of Prese nt Illness No Information Functional Status Date Functional Assessmen t No Information Instructions Date Instruction Additional Infor mation No Information Assessments Type Assessment Date No Information Patient Care Teams Name Effective Dates (start - stop) Status Members No Information
[2024-10-06 08:19] VITALS: BP 142/79; PULSE 101; RESP 24; TEMP 37.1; O2SAT 97; BMI 13.8
--- NOTE | 2024-10-06 09:34 | ED_ITS ---
HPI - General Adult General Chief complaint: Shortness of Breath/Dyspnea Stated complaint: Shortness of breath Time Seen by Provider: 10/06/24 09:00 History of Present Illness HPI narrative: This 64-year-old female comes in with family members. She was seen at [facility] at 4:00 a.m. this morning, about 5 hours prior to arrival here. The patient and her family member state that she was there for about 45 minutes and was complaining of vertigo symptoms, shortness of breath, and ear pain. Family states that there was no testing or workup done and the patient was there about 45 minutes. They state that the provider did not look into her ears. The patient lives alone at home in [facility] and family members have been trying to arrange for residential care. They have not been successful in arranging this. The patient and family member state that she is unable to care for self any longer at home. She does not have enough strength to get up and walk. She is on oxygen continuously with COPD. She weighs 33 kg. Aside from her inability to function at home there are no new complaints other than the vertigo symptoms and nausea. Her vertigo is absent when remaining still but triggered with movement. She does not report a headache or hearing loss. Related Data Home Medications ?Medication ?Instructions ?Recorded ?Confirmed albuterol sulfate 2.5 mg/3 mL mg 10/06/24 (0.083 %) solution for nebulization albuterol sulfate 90 mcg/actuation inhalation 10/06/24 aerosol inhaler (Ventolin HFA) budesonide 0.5 mg/2 mL suspension mg 10/06/24 for nebulization cyclobenzaprine 10 mg tablet mg 3XD 10/06/24 docusate sodium 100 mg capsule mg PO DAILY 10/06/24 gabapentin 100 mg capsule mg 3XD 10/06/24 guaifenesin 600 mg tablet, mg PO 10/06/24 extended release 12 hr ibuprofen 600 mg tablet mg 10/06/24 ropinirole 0.5 mg tablet mg DAILY 10/06/24 Allergies Allergy/AdvReac Type Severity Reaction Status Date / Time amitriptyline Allergy Mild hallucinate Verified 10/06/24 08:31 s Review of Systems Status of ROS: Reports: 10 or more systems reviewed and unremarkable except as noted in History and below Narrative: Constitutional: No fevers. Cachectic and generalized weakness. Eyes: No discharge. No vision changes. HENT: No congestion, no sore throat, no ear pain. Cardiovascular: No chest pain, no palpitations. Respiratory: On chronic oxygen due to COPD. Gastrointestinal: No abdominal pain, no vomiting, no diarrhea. Genitourinary: No dysuria, no hematuria. Musculoskeletal: Normal range of motion. Skin: No rashes, no pruritis. Neurological: No sensory change, speech change. Vertigo symptoms as described above. Endo/Heme/Allergies: No bruising or bleeding. No polydipsia. Pysch: no suicidality, no anxiety, no insomnia. All other systems reviewed and are negative. PFSH PFSH Social History Smoking Status: Former smoker How often do you have a drink containing alcohol: never How often do you have six or more drinks on one occasion: Never AUDIT-C Alcohol total score: 0 Non-prescribed substance use: denies use service: No Exam Narrative: Exam Narrative: Constitutional: Cachectic. HEENT: Normocephalic, atraumatic. Neck: Normal range of motion. Nontender. Supple. Heart: Regular. No murmurs. Normal rate. Intact distal pulses. Lungs: Prolonged expiratory phase. Distant lung sounds. Chronic COPD on continuous oxygen by nasal cannula. Abdomen: Normal bowel sounds. Nontender. No rebound tenderness. Genitalia: Deferred. Back: No midline tenderness. Normal range of motion. Extremities: Normal range of motion. No injury. Skin: Intact. No rash. Warm. No erythema or pallor. Neurologic: Tingling sensation in her lower extremities. Alert and oriented. Generalized weakness. Psychiatric: No suicidality. No anxiety or depression. No insomnia. Nursing notes and vitals signs are reviewed. Const: Vital Signs, click to edit/add: Vital Signs - 24 hr 10/06/24 08:19 Temperature 98.8 F Pulse Rate [Pulse Oximeter] 101 H Respiratory Rate 24 Blood Pressure [Ri ght Upper Arm] 142/79 H Pulse Oximetry 97 Oxygen Delivery Me thod Room Air Course Vital Signs Vital signs: Initial Vital Signs Temperature 98.8 F 10/06/24 08:19 Temperature Source Temporal Artery Scan 10/06/24 08:19 Pulse Rate 101 H 10/06/24 08:19 Respiratory Rate 24 10/06/24 08:19 Respiratory Effort Short of Breath, Pursed Lip 10/06/24 08:19 Respiratory Depth Deep 10/06/24 08:19 Respiratory Pattern Tachypnea 10/06/24 08:19 Blood Pressure 142/79 H 10/06/24 08:19 Blood Pressure Mean 100 10/06/24 08:19 Blood Pressure Position Sitting 10/06/24 08:19 Pulse Oximetry 97 10/06/24 08:19 Oxygen Delivery Method Room Air 10/06/24 08:19 Vital Signs Temperature 98.8 F 10/06/24 08:19 Pulse Rate 101 H 10/06/24 08:19 Respiratory Rate 24 10/06/24 08:19 Blood Pressure 142/79 H 10/06/24 08:19 Pulse Oximetry 97 10/06/24 08:19 Oxygen Delivery Method Room Air 10/06/24 08:19 Temperature 98.8 F 10/06/24 08:19 Pulse Rate 101 H 10/06/24 08:19 Respiratory Rate 24 10/06/24 08:19 Blood Pressure 142/79 H 10/06/24 08:19 Pulse Oximetry 97 10/06/24 08:19 Oxygen Delivery Method Room Air 10/06/24 08:19 Medications Administered Medications: Discontinued Medications Generic Name Dose Route Start Last Admin Trade Name Chelsi PRN Reason Stop Dose Admin Meclizine HCl 25 mg 10/06/24 09:34 10/06/24 09:42 Meclizine Hcl 25 Mg Tablet PO 10/06/24 09:35 25 mg ONCE ONE Administration Ondansetron HCl 4 mg 10/06/24 09:34 10/06/24 09:42 Ondansetron Odt 4 Mg Tab PO 10/06/24 09:35 4 mg ONCE ONE Administration Medical Decision Making MDM Narrative Medical decision making narrative: This patient comes in with family members who report that she really is not able to care for herself any longer at home. They have been seeking residential placement but have not been able to make any arrangements yet. The patient has COPD and is on oxygen by nasal cannula. She does report some vertigo and nausea symptoms. She did receive an oral dose of meclizine and Zofran and these sy mptoms were significantly improved. We did consult with social media manager who made attempts at trying to place in a residential but it is very likely that this will not occur today. I did speak with Dr. Sullivan, hospitalist on-call, who agrees to observation admission. Lab Data Labs: Lab Results 10/06/24 Range/Units 12:03 WBC 5.92 (4.50-11.00) K/uL RBC 4.39 (4.00-5.20) m/uL Hgb 13.6 (12.0-16.0) gm/dL Hct 43.6 (33.0-51.0) % MCV 99 (80-100) fL MCH 31 (26-34) pg MCHC 31 L (32-36) gm/dL RDW Coeff of Timoteo 11.8 (11.5-15.5) % Plt Count 226 (140-440) K/uL Neut % (Auto) 89.2 H (42.0-72.0) % Lymph % (Auto) 6.9 L (20-44) % [place] % (Auto) 3.2 (0.0-11.0) % Eos % (Auto) 0.2 (0.0-7.0) % Baso % (Auto) 0.5 (0.0-3.0) % Neut # (Auto) 5.30 (1.7-7.0) K/uL Lymph # (Auto) 0.40 L (0.90-2.90) K/uL [place] # (Auto) 0.20 (0.00-0.90) K/UL Eos # (Auto) 0.01 (0.00-0.50) K/uL Baso # (Auto) 0.03 (0.00-0.30) K/uL Abs Immat Gran (auto) 0.00 (0.00-0.30) K/uL Imm/Tot Granulo (auto) 0.0 % Sodium 138 (135-149) mmol/L Potassium 4.6 (3.6-5.1) mmol/L Chloride 98 (96-114) mmol/L Carbon Dioxide 37 H (20-32) mmol/L Anion Gap 3 L (7-15) mEq/L BUN 15 (7-30) mg/dL Creatinine 0.4 L (0.5-1.5) mg/dL Estimated Creat Clear 29.71 Estimated GFR 110 ml/min Glucose 117 H (60-115) mg/dL Calcium 9.4 (8.4-10.6) mg/dL Discharge Plan Discharge Clinical Impression: COPD (chronic obstructive pulmonary disease), Weakness Patient Disposition: Admitted As Observation Condition: Unchanged Prescriptions: No Action cyclobenzaprine 10 mg tablet 3XD albuterol sulfate 2.5 mg /3 mL (0.083 %) solution for nebulization Patient Comments: [NO ORIGINAL SIG] ropinirole 0.5 mg tablet DAILY docusate sodium 100 mg capsule PO DAILY budesonide 0.5 mg/2 mL suspension for nebulization Patient Comments: [NO ORIGINAL SIG] gabapentin 100 mg capsule 3XD ibuprofen 600 mg tablet albuterol sulfate [Ventolin HFA] 90 mcg/actuation HFA aerosol inhaler INHALATION Patient Comments: [NO ORIGINAL SIG] guaifenesin 600 mg tablet extended release 12hr PO Follow Up/Referrals: Provider,Not a Local [Primary Care Provider] -
[2024-10-06] MEDS: MECLIZINE HCL 25 MG TABLET PO (09:42)
[2024-10-06] MEDS: ONDANSETRON ODT 4 MG TAB PO ×2 (09:42→23:31)
--- OUTSIDE RECORDS SUMMARY | 2024-10-06 09:48 | XMS_ITS | Clinical Summary ---
Author Organization [facility] Address [address] [place] [address] Care Team Providers Care Material Control Manager Name Role Phone Rhoda Wilder M.D. Primary Care Provider [phone] Source Comments Patient records contain information from all sites at [facility]. For routine questions regarding patient records, call [phone] during business hours, M-F 8:00 AM - 5:00 PM Central Time. Record requests for emergency care only can be directed to [phone] at any time.[facility] Allergies Active Allergy Reactions Criticality Noted [...] Department Care Team Description 10/06/2024 5:18 AM FIRER GLOST KILN - 10/06/2024 7:22 AM [facility] Emergency [facility] [address] [place] [phone] Jseus Meneses P.A.-C. Chronic Obstructive Pulmonary Disease Exacerbation (HCC) (Primary Dx) Discharge Disposition: Home or Self Care 08/19/2024 4:44 PM FIRER GLOST KILN - 08/19/2024 11:59 PM [facility] Hospital Encounter Department of Laboratory Medicine in [address] [phone] Fabian Gr M.D. Chronic Diastolic (Congestive) Heart Failure (HCC); Tachycardia Supraventricular Paroxysmal (HCC) Discharge Disposition: Home or Self Care 08/19/2024 3:45 PM FIRER GLOST KILN Office Visit Department of Family [facility], [facility], in [address] [phone] Fabian Gr M.D. Chronic Respiratory Failure With Hypoxia (HCC) (Primary Dx); Chronic Obstructive Pulmonary Disease (HCC); Malnutrition Moderate Protein-Calorie (HCC); Arthritis Rheumatoid (HCC); Chronic Diastolic (Congestive) Heart Failure (HCC); Other Stimulant Abuse Uncomplicated (HCC); Tachycardia Supraventricular Paroxysmal (HCC); Pain Low Back Unspecified; Pain Cervical; Pain Teeth Discharge Disposition: Home or Self Care 07/28/2024 Refill Department of Family Medicine, [facility], in [address] [phone] Rhoda Wilder M.D. Med Refill 07/28/2024 Refill Department of Family Medicine, [facility], [address] [phone] Rhoda Wilder M.D. Med Refill from Last [...] Sex Assigned at Female 07/24/2018 12:46 PM FIRER GLOST KILN Legal Sex Female 11:04 PM [facility] GLOST KILN Gender Identity Female 07/24/2018 12:46 PM FIRER GLOST KILN Sexual Orientation Straight 07/24/2018 12 :46 PM FIRER GLOST KILN Last Filed Vital Signs Vital Sign Reading Time Taken Comments Blood Pressure 147/88 10/06/2024 6:30 AM [facility] GLOST KILN Pulse 83 10/06/2024 6:30 AM [facility] GLOST KILN Temperature 36.3 C (97.3 F) 10/06/2024 5:19 AM [facility] GLOST KILN Respiratory Rate 18 10/06/2024 5:42 AM FIR[facility] GLOST KILN Oxygen Saturation 93% 10/06/2024 6:30 AM FIR[facility] GLOST KILN Inhaled Oxygen Concentration - - Weight 40 kg (88 lb 2.9 oz) 10/06/2024 5:[address] Height 155.3 cm (5' 1.14) 08/19/2024 3:50 PM CS T Body Mass Index 16.58 08/19/2024 3:50 PM FIRER GLOST KILN Plan of Treatment Upcoming Encounters Date Type Department Care Team (Latest Contact Info) Description 10/07/2024 8:00 AM [facility] Ancillary Procedure Department of Cardiovascular Diseases in [address] [phone] Fabian Gr M.D. [address] [place] [phone] Discharge Disposition: Home or Self Care 10/11/2024 12:45 PM [facility]LOST KILN Office Visit Department of Family Medicine, [facility], in [address] [phone] Fabian Gr M.D. [address] [place] [phone] Discharge Disposition: Home or Self Care Health [...] THYROID-STIMULATING HORMONE-SENSITIVE (S-TSH) Routine 08/19/2024 4:51 PM FIR[facility] GLOST KILN Tachycardia Supraventricular Paroxysmal (HCC) COMPREHENSIVE METABOLIC PANEL, S/P Routine 08/19/2024 4:51 PM [facility] GLOST KILN Chronic Diastolic (Congestive) Heart Failure (HCC) CBC WITH DIFFERENTIAL, B Routine 08/19/2024 4:51 PM [facility] GLOST KILN Chronic Diastolic (Congestive) Heart Failure (HCC) BI BREAST SCREENING BILATERAL WITH TOMOSYNTHESIS RAD - Routine (most inpatients and all outpatients) 12/31/2021 1:34 PM CDT Screening Mammogram Breast Cancer LIPID PANEL, S Routine 09/12/2021 3:04 PM [facility] GLOST KILN Chronic Obstructive Pulmonary Disease Exacerbation (HCC) Cough Unspecified Type Screening Lipid from Last 3 Months or Most Recently Relevant to Health Maintenance Results * (ABNORMAL) CBC with Differential, Blood (08/19/2024 4:51 PM FIRER GLOST KILN) Hemoglobin 13.7 11.6 - 15.0 g/dL 08/19/2024 5:24 PM [facility]LO[facility] KILN CNFL Hematocrit 44.0 35.5 - 44.9 % 08/19/2024 5:24 PM [facility]LO[facility]ILN CNFL Erythrocytes 4.45 3.92 - 5.13 x10(12)/L 08/19/2024 5:24 PM [facility] GLO[facility] KILN CNFL MCV 98.9(H) 78.2 - 97.9 fL 08/19/2024 5:24 PM [facility] GLO[facility] KILN CNFL RBC Distrib Width 12.1(L) 12.2 - 16.1 % 08/19/2024 5:24 PM [facility] GLOST KILN CNFL Platelet Count 223 157 - 371 x10(9)/L 08/19/2024 5:24 PM [facility]LO[facility] KILN CNFL Leukocytes 7.8 3.4 - 9.6 x10(9)/L 08/19/2024 5:24 PM [facility] CNFL Neutrophils 4.67 1.56 - 6.45 x10(9)/L 08/19/2024 5:24 PM [facility]ILN CNFL Lymphocytes 1.90 0.95 - 3.07 x10(9)/L 08/19/2024 5:24 PM [facility] CNFL Monocytes 0.66 0.26 - 0.81 x10(9)/L 08/19/2024 5:24 PM [facility] CNFL Eosinophils 0.53(H) 0.03 - 0.48 x10(9)/L 08/19/2024 5:24 PM [facility]ILN CNFL Basophils 0.05 0.01 - 0.08 x10(9)/L 08/19/2024 5:24 PM [facility]LO[facility] KILN CNFL Blood (Blood, Venous) 08/19/2024 4:51 PM [facility] GLOST KILN 08/19/2024 4:53 PM FIR[facility] GLOST KILN us Fabian Gr M.D. LAB BLOOD ADD-ON Final Re sult [facility] [address] [place] [address], [facility] [place] [address] * S-TSH (Thyroid-Stimulating Hormone - Sensitive) (08/19/2024 4:51 PM FIRER GLOST KILN) TSH, Sensitive 2.2 0.3 - 4.2 mIU/L 08/19/2024 5:22 PM [facility] GLOST KILN CNFL Blood (Blood, Venous) 08/19/2024 4:51 PM [facility] GLOST KILN 08/19/2024 4:53 PM FIR[facility] GLOST KILN us Fabian Gr M.D. LAB BLOOD ADD-ON Final Re sult [facility] [address] [place] [address], [facility] CNFL [facility] in [address] [address] * (ABNORMAL) Comprehensive Metabolic Panel (08/19/2024 4:51 PM FIRER GLOST KILN) Potassium, P 3.8 3.6 - 5.2 mmol/L 08/19/2024 5:11 PM [facility] GLOST KILN CNFL Sodium, P 137 135 - 145 mmol/L 08/19/2024 5:11 PM [facility] GLOST KILN CNFL Chloride, P 94(L) 98 - 107 mmol/L 08/19/2024 5:11 PM [facility] GLOST KILN CNFL Bicarbonate, P 37(H) 22 - 29 mmol/L 08/19/2024 5:11 PM [facility]ER GLOST KILN CNFL Anion Gap, P 6(L) 7 - 15 08/19/2024 5:11 PM [facility] GLOST KILN CNFL BUN (Blood Urea Nitrogen), P 10 6 - 21 mg/dL 08/19/2024 5:11 PM [facility]LOST KILN CNFL Creatinine 0.45(L) 0.59 - 1.04 mg/dL 08/19/2024 5:11 PM [facility] GLOST KILN CNFL Estimated GFR (eGFR) >90 >=60 mL/min/BS A 08/19/2024 5:11 PM [facility]LO[facility] KILN CNFL Comment: Estimated GFR calculated using the 2020 CKD_EPI creatinine equation. Calcium, Total, P 9.5 8.8 - 10.2 mg/dL 08/19/2024 5:11 PM [facility] GLO[facility] KILN CNFL Glucose, P 158(H) 70 - 140 mg/dL 08/19/2024 5:11 PM [facility] GLOST KILN CNFL Protein, Total, P 7.5 6.3 - 7.9 g/dL 08/19/2024 5:11 PM [facility] GLOST KILN CNFL Albumin, P 4.2 3.5 - 5.0 g/dL 08/19/2024 5:11 PM [facility]LO[facility] KILN CNFL Aspartate Aminotransferase (AST), P 22 8 - 43 U/L 08/19/2024 5:11 PM [facility]LO[facility] KILN CNFL Alkaline Phosphatase, P 88 35 - 104 U/L 08/19/2024 5:11 PM [facility] GLOST KILN CNFL Alanine Aminotransferase (ALT), P 20 7 - 45 U/L 08/19/2024 5:11 PM [facility]LO[facility] KILN CNFL Bilirubin, Total, P <0.2 0.0 - 1.2 mg/dL 08/19/2024 5:11 PM [facility]LOST KILN CNFL Blood (Blood, Venous) 08/19/2024 4:51 PM FIRER GLOST KILN 08/19/2024 4:53 PM FIRER GLOST KILN us Fabian Gr M.D. LAB BLOOD ADD-ON Final Re sult [facility] [address] [place] [address], [facility] CNFL [facility] in [address] [address] * BI Breast Screening Bilateral with Tomosynthesis [...] * (ABNORMAL) Lipid Panel (09/12/2021 3:04 PM FIRER GLOST KILN) Cholesterol, Total 229(H) mg/dL 2020 3:42 PM FIRER GLOST KILN CNFL Comment: ----REFERENCE VALUE---- Desirable: < 200 Borderline high: 200 - 239 High: > or = 240 Triglycerides 77 mg/dL 09/12/2021 3:42 PM [facility]ER GLOST KILN CNFL Comment: ----REFERENCE VALUE---- Normal: <150 Borderline high: 150-199 High: 200-499 Very high: > or =500 Cholesterol, HDL 143 >=50 mg/dL 09/12/20 4:32 PM [facility]ER GLOST KILN CNFL Calculated LDL 71 mg/dL 09/12/2021 4:32 PM [facility]ER GLOST KILN CNFL Comment: ----REFERENCE VALUE---- Desirable: <100 mg/dL Above Desirable: 100-129 mg/dL Borderline High: 130-159 mg/dL High: 160-189 mg/dL Very High: >=190 mg/dL Cholesterol, Non-HDL, Calculated 86 mg/dL 09/12/2021 4:32 PM FIRER GLOST KILN CNFL Comment: ----REFERENCE VALUE---- Desirable: <130 Above Desirable: 130-159 Borderline high: 160-189 High: 190-219 Very high: > or =220 Blood (Blood, Venous) 09/12/2021 3:04 PM FIRER GLOST KILN 09/12/2021 3:06 PM FIRER GLOST KILN Nena Wood LAB BLOOD ADD-ON Final Resul t [facility] [address] [place] [address], [facility] in [address] [address] from Last 3 Months or Most Recently Relevant to Health Maintenance Insurance [facility] [place] [id number] DUSTY WOODS [id number] Advance Directives For more information, please contact: [phone] * Full Code (Latest Code Status on File) Date Activated Date Inactivated Comments 07/30/2020 12:51 AM 07/30/2020 6:22 PM Question Answer Comments Full Code: Discussed Care Teams Material Control Manager Relationship Specialty Start Date End Date Rhoda Wilder M.D. [address] [place] [address] DUSTY Reyna [phone] PCP - General Family Medicine 06/05/22
--- OUTSIDE RECORDS SUMMARY | 2024-10-06 09:48 | XMS_ITS | Referral Summary ---
Author Organization [facility] Address [address] [place] [address] Care Team Providers Care Housekeeping/Laundry Supervisor Name Role Phone Rhoda Wilder M.D. Primary Care Provider [phone] Source Comments Patient records contain information from all sites at [facility]. For routine questions regarding patient records, call [phone] during business hours, M-F 8:00 AM - 5:00 PM Central Time. Record requests for emergency care only can be directed to [phone] at any time.[facility] Encounters Date Type Department Care Team Description 10/06/2024 5:18 AM ONCOLOGY RN - 10/06/2024 7:22 AM [facility] Emergency [place] [facility] [address] [place] [phone] Jesus Meneses, P.A.-C. Chronic Obstructive Pulmonary Disease Exacerbation (HCC) (Primary Dx) Discharge Disposition: Home or Self Care 08/19/2024 4:44 PM ONCOLOGY RN - 08/19/2024 11:59 PM ONCOLOGY RN Hospital Encounter Department of Laboratory Medicine in [address] [phone] Fabian Gr M.D. Chronic Diastolic (Congestive) Heart Failure (HCC); Tachycardia Supraventricular Paroxysmal (HCC) Discharge Disposition: Home or Self Care 08/19/2024 3:45 PM ONCOLOGY RN Office Visit Department of Family Medicine, [facility], in [address] [phone] Fabian Gr M.D. Chronic Respiratory Failure With Hypoxia (HCC) (Primary Dx); Chronic Obstructive Pulmonary Disease (HCC); Malnutrition Moderate Protein-Calorie (HCC); Arthritis Rheumatoid (HCC); Chronic Diastolic (Congestive) Heart Failure (HCC); Other Stimulant Abuse Uncomplicated (HCC); Tachycardia Supraventricular Paroxysmal (HCC); Pain Low Back Unspecified; Pain Cervical; Pain Teeth Discharge Disposition: Home or Self Care 07/28/2024 Refill Department of Family Medicine, [facility], [address] [phone] Rhoda Wilder M.D. Med Refill 07/28/2024 Refill Department of [facility], [facility], [address] [phone] Rhoda Wilder M.D. Med Refill from Last [...] Sex Assigned at Female 07/24/2018 12:46 PM ONCOLOGY RN Legal Sex Female 11:04 PM ONCOLOGY RN Gender Identity Female 07/24/2018 12:46 PM ONCOLOGY RN Sexual Orientation Straight 07/24/2018 12 :46 PM ONCOLOGY RN Last Filed Vital Signs Vital Sign Reading Time Taken Comments Blood Pressure 147/88 10/06/2024 6:30 AM ONCOLOGY RN Pulse 83 10/06/2024 6:30 AM ONCOLOGY RN Temperature 36.3 C (97.3 F) 10/06/2024 5:19 AM ONCOLOGY RN Respiratory Rate 18 10/06/2024 5:42 AM ONCOLOGY RN Oxygen Saturation 93% 10/06/2024 6:30 AM ONCOLOGY RN Inhaled Oxygen Concentration - - Weight 40 kg (88 lb 2.9 oz) 10/06/2024 5:[address] Height 155.3 cm (5' 1.14) 08/19/2024 3:50 PM CS T Body Mass Index 16.58 08/19/2024 3:50 PM ONCOLOGY RN Plan of Treatment Upcoming Encounters Date Type Department Care Team (Latest Contact Info) Description 10/07/2024 8:00 AM ONCOLOGY RN Ancillary Procedure Department of Cardiovascular Diseases in [address] [phone] Fabian Gr M.D. [address] [place] [phone] Discharge Disposition: Home or Self Care 10/11/2024 12:45 PM ONCOLOGY RN Office Visit Department of Family Medicine, [facility], in [address] [phone] Fabian Gr M.D. [address] [place] [phone] Discharge Disposition: Home or Self Care Procedures Procedure Name Priority Date/Time Associated Diagnosis Comments THYROID-STIMULATING HORMONE-SENSITIVE (S-TSH) Routine 08/19/2024 4:51 PM ONCOLOGY RN Tachycardia Supraventricular Paroxysmal (HCC) COMPREHENSIVE METABOLIC PANEL, S/P Routine 08/19/2024 4:51 PM ONCOLOGY RN Chronic Diastolic (Congestive) Heart Failure (HCC) CBC WITH DIFFERENTIAL, B Routine 08/19/2024 4:51 PM ONCOLOGY RN Chronic Diastolic (Congestive) Heart Failure (HCC) BI BREAST SCREENING BILATERAL WITH TOMOSYNTHESIS RAD - Routine (most inpatients and all outpatients) 12/31/2021 1:34 PM CDT Screening Mammogram Breast Cancer LIPID PANEL, S Routine 09/12/2021 3:04 PM ONCOLOGY RN Chronic Obstructive Pulmonary Disease Exacerbation (HCC) Cough Unspecified Type Screening Lipid from Last 3 Months or Most Recently Relevant to Health Maintenance Results * (ABNORMAL) CBC with Differential, Blood (08/19/2024 4:51 PM ONCOLOGY RN) Hemoglobin 13.7 11.6 - 15.0 g/dL 08/19/2024 5:24 PM ONCOLOGY RN CNFL Hematocrit 44.0 35.5 - 44.9 % 08/19/2024 5:24 PM ONCOLOGY RN CNFL Erythrocytes 4.45 3.92 - 5.13 x10(12)/L 08/19/2024 5:24 PM ONCOLOGY RN CNFL MCV 98.9(H) 78.2 - 97.9 fL 08/19/2024 5:24 PM ONCOLOGY RN CNFL RBC Distrib Width 12.1(L) 12.2 - 16.1 % 08/19/2024 5:24 PM ONCOLOGY RN CNFL Platelet Count 223 157 - 371 x10(9)/L 08/19/2024 5:24 PM ONCOLOGY RN CNFL Leukocytes 7.8 3.4 - 9.6 x10(9)/L 08/19/2024 5:24 PM ONCOLOGY RN CNFL Neutrophils 4.67 1.56 - 6.45 x10(9)/L 08/19/2024 5:24 PM ONCOLOGY RN CNFL Lymphocytes 1.90 0.95 - 3.07 x10(9)/L 08/19/2024 5:24 PM ONCOLOGY RN CNFL Monocytes 0.66 0.26 - 0.81 x10(9)/L 08/19/2024 5:24 PM ONCOLOGY RN CNFL Eosinophils 0.53(H) 0.03 - 0.48 x10(9)/L 08/19/2024 5:24 PM ONCOLOGY RN CNFL Basophils 0.05 0.01 - 0.08 x10(9)/L 08/19/2024 5:24 PM ONCOLOGY RN CNFL Blood (Blood, Venous) 08/19/2024 4:51 PM ONCOLOGY RN 08/19/2024 4:53 PM ONCOLOGY RN us Fabian Gr M.D. LAB BLOOD ADD-ON Final Re sult [facility] [address] [place] [address], [facility] in [address] [address] * S-TSH (Thyroid-Stimulating Hormone - Sensitive) (08/19/2024 4:51 PM ONCOLOGY RN) [facility] TSH, Sensitive 2.2 0.3 - 4.2 mIU/L 08/19/2024 5:22 PM ONCOLOGY RN CNFL Blood (Blood, Venous) 08/19/2024 4:51 PM ONCOLOGY RN 08/19/2024 4:53 PM ONCOLOGY RN us Fabian Gr M.D. LAB BLOOD ADD-ON Final Re sult [facility] [address] [place] [address], [facility] CNFL [facility] in [address] [address] * (ABNORMAL) Comprehensive Metabolic Panel (08/19/2024 4:51 PM ONCOLOGY RN) Potassium, P 3.8 3.6 - 5.2 mmol/L 08/19/2024 5:11 PM ONCOLOGY RN CNFL Sodium, P 137 135 - 145 mmol/L 08/19/2024 5:11 PM ONCOLOGY RN CNFL Chloride, P 94(L) 98 - 107 mmol/L 08/19/2024 5:11 PM ONCOLOGY RN CNFL Bicarbonate, P 37(H) 22 - 29 mmol/L 08/19/2024 5:11 PM ONCOLOGY RN CNFL Anion Gap, P 6(L) 7 - 15 08/19/2024 5:11 PM ONCOLOGY RN CNFL BUN (Blood Urea Nitrogen), P 10 6 - 21 mg/dL 08/19/2024 5:11 PM ONCOLOGY RN CNFL Creatinine 0.45(L) 0.59 - 1.04 mg/dL 08/19/2024 5:11 PM ONCOLOGY RN CNFL Estimated GFR (eGFR) >90 >=60 mL/min/BS A 08/19/2024 5:11 PM ONCOLOGY RN CNFL Comment: Estimated GFR calculated using the 2020 CKD_EPI creatinine equation. Calcium, Total, P 9.5 8.8 - 10.2 mg/dL 08/19/2024 5:11 PM ONCOLOGY RN CNFL Glucose, P 158(H) 70 - 140 mg/dL 08/19/2024 5:11 PM ONCOLOGY RN CNFL Protein, Total, P 7.5 6.3 - 7.9 g/dL 08/19/2024 5:11 PM ONCOLOGY RN CNFL Albumin, P 4.2 3.5 - 5.0 g/dL 08/19/2024 5:11 PM ONCOLOGY RN CNFL Aspartate Aminotransferase (AST), P 22 8 - 43 U/L 08/19/2024 5:11 PM ONCOLOGY RN CNFL Alkaline Phosphatase, P 88 35 - 104 U/L 08/19/2024 5:11 PM ONCOLOGY RN CNFL Alanine Aminotransferase (ALT), P 20 7 - 45 U/L 08/19/2024 5:11 PM ONCOLOGY RN CNFL Bilirubin, Total, P <0.2 0.0 - 1.2 mg/dL 08/19/2024 5:11 PM ONCOLOGY RN CNFL Blood (Blood, Venous) 08/19/2024 4:51 PM ONCOLOGY RN 08/19/2024 4:53 PM ONCOLOGY RN us Fabian Gr M.D. LAB BLOOD ADD-ON Final Re sult Performing Organization Address City/State/[facility] Co de Phone Number [facility] [address] [place] [address], [facility] CNFL [facility] in [address] [address] * BI Breast Screening Bilateral with Tomosynthesis [...] * (ABNORMAL) Lipid Panel (09/12/2021 3:04 PM ONCOLOGY RN) Cholesterol, Total 229(H) mg/dL 2020 3:42 PM ONCOLOGY RN CNFL Comment: ----REFERENCE VALUE---- Desirable: < 200 Borderline high: 200 - 239 High: > or = 240 Triglycerides 77 mg/dL 09/12/2021 3:42 PM ONCOLOGY RN CNFL Comment: ----REFERENCE VALUE---- Normal: <150 Borderline high: 150-199 High: 200-499 Very high: > or =500 Cholesterol, HDL 143 >=50 mg/dL 09/12/20 4:32 PM ONCOLOGY RN CNFL Calculated LDL 71 mg/dL 09/12/2021 4:32 PM ONCOLOGY RN CNFL Comment: ----REFERENCE VALUE---- Desirable: <100 mg/dL Above Desirable: 100-129 mg/dL Borderline High: 130-159 mg/dL High: 160-189 mg/dL Very High: >=190 mg/dL Cholesterol, Non-HDL, Calculated 86 mg/dL 09/12/2021 4:32 PM ONCOLOGY RN CNFL Comment: ----REFERENCE VALUE---- Desirable: <130 Above Desirable: 130-159 Borderline high: 160-189 High: 190-219 Very high: > or =220 Blood (Blood, Venous) 09/12/2021 3:04 PM ONCOLOGY RN 09/12/2021 3:06 PM ONCOLOGY RN us Nena Wood LAB BLOOD ADD-ON Final Resul t [facility] [address] [place] [address], [facility] [employer] in [place] [address] DUSTY Reyna [address] from Last 3 Months or Most Recently Relevant to Health Maintenance Insurance [facility] [place] [id number] [place] [address] Advance Directives For more information, please contact: [phone] * Full Code (Latest Code Status on File) Date Activated Date Inactivated Comments 07/30/2020 12:51 AM 07/30/2020 6:22 PM Question Answer Comments Full Code: Discussed Care Teams Housekeeping/Laundry Supervisor Relationship Specialty Start Date End Date Rhoda Wilder M.D. [address] [place], [place] [address]DUSTY Toribio [phone] PCP - General Family Medicine 06/05/22
--- OUTSIDE RECORDS SUMMARY | 2024-10-06 09:48 | XMS_ITS | Encounter Summary ---
Author Organization [facility] Address [address] [place] [address] Care Team Providers Care Journeyman Molder Name Role Phone Rhoda Wilder M.D. Primary Care Provider [phone] Encounter Details Date Type Department Care Team (Late st Contact Info) Description 09/18/2018 [facility] [address] [place] [phone] Virginie Ortiz C.NJimP. [address] [place] [phone] Fracture Lumbar First Wedge Compression Closed Initial (HCC) (Primary Dx); Loss Weight Social History Tobacco Use Types Packs/Day Years Used Date Smoking Tobacco: Every Day Comments Unknown Sex and Gender Information Value Date Recorded Sex Assigned at Female 07/24/2018 12:46 PM FILTER WASHER AND PRESSER Legal Sex Female 11:04 PM FILTER WASHER AND PRESSER Gender Identity Female 07/24/2018 12:46 PM FILTER WASHER AND PRESSER Sexual Orientation Straight 07/24/2018 12 :46 PM FILTER WASHER AND PRESSER documented as of this encounter Plan of Treatment Upcoming Encounters Date Type Department Care Team (Latest Contact Info) Description 10/07/2024 8:00 AM FILTER WASHER AND PRESSER Ancillary Procedure Department of Cardiovascular Diseases in [address] [phone] Fabian Gr M.D. [address] [place] [phone] Discharge Disposition: Home or Self Care 10/11/2024 12:45 PM FILTER WASHER AND PRESSER Office Visit Department of Family Medicine, [facility], in [address] [phone] Fabian Gr M.D. [address] [place] [phone] Discharge Disposition: Home or Self Care documented as of this encounter Visit Diagnoses Diagnosis Fracture Lumbar First Wedge Compression Closed Initial (HCC)- Primary Loss Weight documented in this encounter Additional Health Concerns Infection Onset Date Last Indicated Resolved Time COVID19 Pending 07/30/2020 07/30/2020 07/30/2020 1 :38 AM FILTER WASHER AND PRESSER COVID19 Pending 07/30/2020 07/30/2020 07/30/2020 2 :04 AM FILTER WASHER AND PRESSER COVID19 Pending 08/17/2020 08/17/2020 08/18/2020 1 2:59 PM FILTER WASHER AND PRESSER COVID19 Pending 11/30/2020 11/30/2020 11/30/2020 1 0:10 PM CDT COVID19 Pending 12/07/2020 12/07/2020 12/07/2020 1 0:26 PM CDT COVID19 Pending 05/07/2021 05/07/2021 05/08/2021 7 :30 AM CDT COVID19 Pending 06/02/2022 06/02/2022 06/02/2022 1 0:52 PM CDT Assessment Noted Time PHQ-9 Depression Total Score: 7 07/10/20 12 1:30 PM CDT documented as of this encounter Care Teams Journeyman Molder Relationship Specialty Start Date End Date Rhoda Wilder M.D. [address] [place] [phone] PCP - General Family Medicine 06/05/22 documented as of this encounter
--- OUTSIDE RECORDS SUMMARY | 2024-10-06 09:48 | XMS_ITS | Encounter Summary ---
Author Organization [facility] Address [address] [place] [address] Care Team Providers Care Inclusion Internship Name Role Phone Rhoda Wilder M.D. Primary Care Provider Reason for Visit * Reason Comments Shortness of Breath Duoneb 1 dose given by [facility] before arrival. Encounter Details Date Type Department Care Team (Late st Contact Info) Description 10/06/2024 5:18 AM CHEF'S ASSISTANT - 10/06/2024 7:22 AM [facility] Emergency [facility] [address] [place] [phone] Jesus Meneses, P.A.-C. [address] [place] [phone] Chronic Obstructive Pulmonary Disease Exacerbation (HCC) (Primary [...] Sex Assigned at Female 07/24/2018 12:46 PM CHEF'S ASSISTANT Legal Sex Female 11:04 PM CHEF'S ASSISTANT Gender Identity Female 07/24/2018 12:46 PM CHEF'S ASSISTANT Sexual Orientation Straight 07/24/2018 12 :46 PM CHEF'S ASSISTANT documented as of this encounter Last Filed Vital Signs Vital Sign Reading Time Taken Comments Blood Pressure 147/88 10/06/2024 6:30 AM CHEF'S ASSISTANT Pulse 83 10/06/2024 6:30 AM CHEF'S ASSISTANT Temperature 36.3 C (97.3 F) 10/06/2024 5:19 AM CHEF'S ASSISTANT Respiratory Rate 18 10/06/2024 5:42 AM CHEF'S ASSISTANT Oxygen Saturation 93% 10/06/2024 6:30 AM CHEF'S ASSISTANT Inhaled Oxygen Concentration - - Weight 40 kg (88 lb 2.9 oz) 10/06/2024 5:[address] Height - - Body Mass Index 16.58 08/19/2024 3:50 PM CHEF'S ASSISTANT documented in this encounter Discharge Instructions * Discharge Instructions* Jesus Meneses P.A.-C. - 10/06/2024 5:37 AM CHEF'S ASSISTANT You appear to have suffered from a COPD exacerbation. You are being placed on antibiotic and prednisone. Please continue to use your home medications as prescribed. Please follow up with your primarycare provider. Please return to the ER if new symptoms develop, current symptoms worsen, or you becomes concerned. 'S ASSISTANT * Attachments The following attachments cannot be sent through Care Everywhere. * Chronic Obstructive Pulmonary Disease Exacerbation (Sami) documented in this encounter Medications at Time [...] home. She is currently working with a family independence case manager to inquire about moving into a alf. Based on her clinical presentation at this time I do not have a medical reason to admit her to the hospital. This may change and we have discussed return ER warnings. I encouraged the patient and her daughter to continue to work with her family independence case manager to facilitate finding the best [...] Exacerbation (HCC) Jesus Meneses P.A.-C. 10/06/24 0654 'S ASSISTANT documented in this encounter Plan of Treatment Upcoming Encounters Date Type Department Care Team (Latest Contact Info) Description 10/07/2024 8:00 AM CHEF'S ASSISTANT Ancillary Procedure Department of Cardiovascular Diseases in [address] [phone] Fabian Gr M.D. [address] [place] [phone] Discharge Disposition: Home or Self Care 10/11/2024 12:45 PM CHEF'S ASSISTANT Office Visit Department of Family Medicine, [facility], in [address] [phone] Fabian Gr M.D. [address] [place] [phone] Discharge Disposition: Home or Self Care documented [...] For 1 dose Given 10/06/2024 5:38 AM CHEF'S ASSISTANT 10 mg documented in this encounter Active and Recently Administered Medications Times are shown in CHEF'S ASSISTANT. Scheduled Medication Order 10/04/2024 10/05/2024 10/06/2024 dexAMETHasone tablet 10 mg (Decadron) (COMPLETED) 10 mg, oral, Once, On Fri10/06/24 at 0536, For 1 dose 0538 (Given - Provid er: Franklyn Santoro R.N.) documented in this encounter Additional Health Concerns Assessment Noted Time PHQ-9 Depression Total Score: 7 07/10/20 12 1:30 PM CDT documented as of this encounter Care Teams Inclusion Internship Relationship Specialty Start Date End Date Rhoda Wilder M.D. [id number] [phone] PCP - General Family Medicine 06/05/22 documented as of this encounter
--- OUTSIDE RECORDS SUMMARY | 2024-10-06 09:48 | XMS_ITS ---
Author Organization [facility] Address [address] [place] [address] Care Team Providers Care Pediatric Hospitalist Name Role Phone Unavailable Unavailable Unavailable Surgery Details Not on file Complications Check Surgery Details section. Procedure Estimated Blood Loss Check Surgery Details section. Procedure Findings Check Surgery Details section. Procedure Specimens Taken Check Surgery Details section.
--- OUTSIDE RECORDS SUMMARY | 2024-10-06 09:48 | XMS_ITS | Encounter Summary ---
Author Organization [facility] Address [address] [place] [address] Care Team Providers Care Bag Sealer Name Role Phone Rhoda Wilder M.D. Primary Care Provider [phone] Encounter Details Date Type Department Care Team (Late st Contact Info) Description 07/16/2018 [facility] [address] [place] [phone] Virginie Ortiz C.NJimP. [address] [place] [phone] Loss Weight (Primary Dx); Loss Weight Abnormal; Fracture Lumbar First Wedge Compression Closed Initial (HCC) Social History Tobacco Use Types Packs/Day Years Used Date Smoking Tobacco: Every Day Comments Unknown Sex and Gender Information Value Date Recorded Sex Assigned at Female 07/24/2018 12:46 PM RAND SEWER Legal Sex Female 11:04 PM RAND SEWER Gender Identity Female 07/24/2018 12:46 PM RAND SEWER Sexual Orientation Straight 07/24/2018 12 :46 PM RAND SEWER documented as of this encounter Plan of Treatment Upcoming Encounters Date Type Department Care Team (Latest Contact Info) Description 10/07/2024 8:00 AM RAND SEWER Ancillary Procedure Department of Cardiovascular Diseases in [address] [phone] Fabian Gr M.D. [address] [place] [phone] Discharge Disposition: Home or Self Care 10/11/2024 12:45 PM RAND SEWER Office Visit Department of Family Medicine, [facility], in [address] [phone] Fabian Gr M.D. [address] [place] [phone] Discharge Disposition: Home or Self Care documented as of this encounter Visit Diagnoses Diagnosis Loss Weight- Primary Loss Weight Abnormal Fracture Lumbar First Wedge Compression Closed Initial (HCC) documented in this encounter Additional Health Concerns Infection Onset Date Last Indicated Resolved Time COVID19 Pending 07/30/2020 07/30/2020 07/30/2020 1 :38 AM RAND SEWER COVID19 Pending 07/30/2020 07/30/2020 07/30/2020 2 :04 AM RAND SEWER COVID19 Pending 08/17/2020 08/17/2020 08/18/2020 1 2:59 PM RAND SEWER COVID19 Pending 11/30/2020 11/30/2020 11/30/2020 1 0:10 PM CDT COVID19 Pending 12/07/2020 12/07/2020 12/07/2020 1 0:26 PM CDT COVID19 Pending 05/07/2021 05/07/2021 05/08/2021 7 :30 AM CDT COVID19 Pending 06/02/2022 06/02/2022 06/02/2022 1 0:52 PM CDT Assessment Noted Time PHQ-9 Depression Total Score: 7 07/10/20 12 1:30 PM CDT documented as of this encounter Care Teams Bag Sealer Relationship Specialty Start Date End Date Rhoda Wilder M.D. [address] [place] [phone] PCP - General Family Medicine 06/05/22 documented as of this encounter
--- OUTSIDE RECORDS SUMMARY | 2024-10-06 09:48 | XMS_ITS | Continuity of Care Document ---
Author Organization [facility] Address [address] [place] [address] Phone Care Team Providers Care Rural Mail Carrier Name Role Phone No Information Unavailable Unavailable Advance Directives Directive Yes / No Effective Date File Name No Information Encounters Encounter Description Practice Location Reason(s) For Visit Diagnoses Date Provider Providers Copied on Encounter [facility], [address], [place], [address], [place] tel:[phone] No Information [phone] No Information Family History Family Member Type Diagnosis Age At Onset No Information Payers Payer name Insurance type Covered republican ID Authoriza mastersergio(s) [employer] Work [employer] Insurance [id number] Social History Type Description Quantity Date Captured [...]
--- OUTSIDE RECORDS SUMMARY | 2024-10-06 09:48 | XMS_ITS | Clinical Summary ---
Author Organization [facility] Address [address] [place] [address] Care Team Providers Care Guitar Instructor Name Role Phone Stephen Reyes MD Primary Care Provider [phone] Source Comments If you need additional information that is not available on Care Everywhere, please contact our Medical Records Department during business hours (Friday - Friday, 8 am - 5 pm) at . During nonbusiness hours, please contact our Trauma and Emergency Center at .[facility] Allergies No known active allergies [...] patient's age to complete this topic Insurance [facility] Care Teams Guitar Instructor Relationship Specialty Start Date End Date Stephen Reyes MD PCP - General FAMILY MEDICINE 05/27/14
--- NOTE | 2024-10-06 11:00 | PC.SOCIAL ---
Addendum entered by KADEEM Castillo 10/06/24 13:29: Discharge planning: Contacted the following [facility] facilities regarding placement witht he listed results: 1. Received call back from [facility] stating they are refusing pt based on not having a contract with her insurance and not being interested in exploring that option. 2. Received call back from Jossy at [facility] stating they have a bed opening up but are refusing pt based on not having a contract with her insurance and not being interested in exploring that option. 3. Called [facility] in [place] [phone], left message requesting call back on bed availability. 4. Called [facility], , spoke with Radha and faxed ([phone]) requested information for review. Awaiting call back with decision on admit. 5. [facility] [phone] and left message requesting call back with bed availability. 6. [facility], secure emailed referral to Prabha in admissions who states they are not contracted but are able to admit pt's with [place] insurance to their TCU but not to their tank terminal gauger care unit. Awaiting decision on admit. office worker to follow up as needed. Addendum entered by KADEEM Castillo 10/06/24 11:31: Social work: Spoke with dtr, Nicole, who is aware of SNF facilities contacted and that [facility] is looking at referral for a possible admit tomorrow. Awaiting decision from [facility]. Dtr has looked at resource list of SNF's provided and is requesting social services counselor also contact the facilities in [facility] and [place]. office worker to follow up as needed. Original Note: Social work: Met with pt and family in room regarding d/c plan. Pt lives in her own home in [place], [place] and son lives nearby and has been helping pt as much as he can at home. Family and pt have been working with [facility] to try to place pt in an assisted living facility in [place]. The [facility] group worker is Karen Bui [phone]. Dtr states she thinks they are waiting for Karen to find out if pt has insurance coverage for placement. Pt shared she has a [facility] Sorting Machine Attendant through her insurance, Aleida Yeboah [phone], who they have also been working with to try to clarify insurance coverage for placement. Family and pt are requesting social work assistance in either placing pt in a SNF from the hospital or clarifying what steps family can take to facilitate SNF placement, pt's insurance coverage for placement and information on SNF facilities. Pt and family requested social services counselor reach out to Karen and Aleida and provide them with any information that would be helpful to facilitate SNF placement. Called Karen at [facility] and requested call back regarding this patient adn her insurance coverage for placement. Called Aleida at [facility], who clarified that pt does have [facility] coverage for any contracted SNF facility and that non-contracted SNF facilities can contact the [facility] Provider Line [phone] to discuss the possibility of admit and coverage by [facility] Bill the Butcher at their facility. Pt and family are most interested in SNF facilities in the [place] [facility] area. The closest [facility] contracted SNF facilities are located in [place]. Called the following facilities regarding bed availability with the listed outcomes: 1. [facility] - Spoke with Janneth and Secure emailed requested information for evaluation for admit. 2. [facility]- Spoke with Steff, no beds available. 3. [facility] - Spoke with Jossy, no beds available. 4. [facility] in [place] - no beds available. 5. [facility] - left message requesting call back regarding availability. Social worked provided written list of SNF facilities and their [facility] ratings an information on these ratings to pt and family. Pt and family have this social services counselor's contact information if needed. office worker to follow up as needed.
--- NOTE | 2024-10-06 11:56 | CRLHL7_ITS ---
For Patients: As a result of the Century Cures Act, medical imaging exams and procedure reports are released immediately into your electronic medical record. You may view this report before your referring provider. If you have questions, please contact your health care provider. INDICATION: VERTIGO, GENERALIZED WEAKNESS. TECHNIQUE: Head CT without contrast. COMPARISON: None. FINDINGS: CSF spaces: Within normal limits for age. Brain parenchyma and extra-axial spaces: There are nonspecific low attenuation white matter changes consistent with chronic microvascular disease. No sign of mass, hemorrhage, or midline shift. Skull base and calvarium: The visualized paranasal sinuses and mastoid air cells demonstrate no acute or significant findings. The visualized orbits are grossly unremarkable. No skull fractures. IMPRESSION: No acute intracranial process identified.. Please note that all CT scans at this facility use dose modulation, iterative reconstruction, and/or weight-based dosing when appropriate to reduce radiation dose to as low as reasonably achievable. Dictated by Mayur Lamb MD @ 10/06/2024 12:37:23 PM (Electronically Signed)
--- NOTE | 2024-10-06 11:57 | CRLHL7_ITS ---
For Patients: As a result of the Century Cures Act, medical imaging exams and procedure reports are released immediately into your electronic medical record. You may view this report before your referring provider. If you have questions, please contact your health care provider. INDICATION: COPD COMPARISON: 09/01/2021 chest radiograph TECHNIQUE: Single frontal radiographic view(s) of the chest. FINDINGS: No substantial pleural effusion. Hyperexpanded lungs. No definite focal pulmonary consolidation. Normal heart size. There are osseous degenerative changes. IMPRESSION: Hyperexpanded lungs. No definite focal pulmonary consolidation. Dictated by Raad Fish MD @ 10/06/2024 12:51:26 PM (Electronically Signed)
[2024-10-06 12:11] LABS: Basophils Absolute Auto 0.03 K/uL (0.00-0.30); Basophils Percent Auto 0.5 % (0.0-3.0); Eosinophils Absolute Auto 0.01 K/uL (0.00-0.50); Eosinophils Percent Auto 0.2 % (0.0-7.0); Hematocrit 43.6 % (33.0-51.0); Hemoglobin* 13.6 gm/dL (12.0-16.0); Lymphocytes Percent Auto 6.9 % (20-44); Mean Corpuscular HGB Conc 31 gm/dL (32-36); Mean Corpuscular Hemoglobin 31 pg (26-34); Mean Corpuscular Volume 99 fL (80-100); Monocytes Percent Auto 3.2 % (0.0-11.0); Neutrophils Percent Auto 89.2 % (42.0-72.0); Platelet Count* 226 K/uL (140-440); RDW Coefficient of Variation % 11.8 % (11.5-15.5); Red Blood Count 4.39 m/uL (4.00-5.20); White Blood Count* 5.92 K/uL (4.50-11.00)
[2024-10-06 12:17] LABS: Slide Review Reflex No
[2024-10-06 12:26] LABS: Chloride* 98 mmol/L (96-114); Potassium* 4.6 mmol/L (3.6-5.1); Sodium* 138 mmol/L (135-149)
[2024-10-06 12:29] LABS: Anion Gap 3 mEq/L (7-15); Blood Urea Nitrogen* 15 mg/dL (7-30); Carbon Dioxide* 37 mmol/L (20-32); Creatinine* 0.4 mg/dL (0.5-1.5); Est. Creatinine Clearance* 29.71; Estimated Glomerular Filt Rate 110 ml/min
[2024-10-06 12:30] LABS: Calcium* 9.4 mg/dL (8.4-10.6); Glucose* 117 mg/dL (60-115)
--- NOTE | 2024-10-06 15:30 | P.IMHP_ITS ---
Hospitalist- H&P: DOUGLAS History of Present Illness Date Seen: 10/06/24 Chief complaint: Shortness of breath Narrative: Caitlin Woodward is a 64 year old female with severe COPD and malnutrition admitted through the emergency department with inability to care for herself. She lives independently in [place]. Over the past month she has become progressively functionally disabled. She attributes this to the development of vertigo. She spends her entire day on her couch. She is no longer able to get off the couch without assistance. When she moves her head she gets a sense of the room spinning. Because of this she feels quite unsteady and so has not been moving without someone holding onto her. Because she lives alone she is only able to get to her commode when family or friend come to visit. She is unable to get to her nebulizer to get breathing treatments. She is unable to get to the kitchen to get food or water. She reports her vertigo is not a longstanding problem but has just developed and progressively gotten worse over the last month. She does report that she has some chronic decreased hearing in her left ear. She otherwise not hearing any noise in her ears. The vertigo is positional in that if she holds her head still especially if she is lying on her right side she feels fine. Extending her neck or sitting up and leaning forward trigger episodes of vertigo. She has had longstanding cachexia. Ten years ago her weight was 64 kg. Three years her weight was 47 kg. Today it is 33 kg. She denies any limitations on her appetite or gastrointestinal symptoms associated with eating. It appears this is primarily the cachexia associated with end-stage COPD. She has chronic dyspnea at rest. She has her oxygen at 3 L per nasal cannula at rest and goes up to for L per nasal cannula with any activity.. She has very po or exercise tolerance when she is able to move with assistance. Review of Systems Narrative: She reports no new respiratory symptoms. Just dyspnea which she thinks has gradually been getting worse over the last month as well. No chest pain. She is aware of tachy palpitations especially with activity. She monitors her oxygen at home as well. She reports that she is able to eat when she is got someone to bring food to her. She has a tense he towards constipation. She is not aware of any history of heart failure. She did have SVT when she was hospitalized here 3 years ago. PFSH PFSH Medical History (Updated 10/06/24 @ 16:13 by Mp Moreira MD) Discharge planning issues ?Z75.8 - Other problems related to medical facilities and other health care (ICD-10) Systemic lupus erythematosus ?M32.9 - Systemic lupus erythematosus, unspecified (ICD-10) Tobacco use disorder ?F17.200 - Nicotine dependence, unspecified, uncomplicated (ICD-10) Lumbar compression fracture ?S32.000A - Wedge compression fracture of unspecified lumbar vertebra, initial encounter for closed fracture (ICD-10) Osteoporosis ?M81.0 - Age-related osteoporosis without current pathological fracture (ICD- 10) Vertigo ?R42 - Dizziness and giddiness (ICD-10) Impaired mobility ?Z74.09 - Other reduced mobility (ICD-10) Pulmonary cachexia due to chronic obstructive pulmonary disease ?R64 - Cachexia (ICD-10) ?J44.9 - Chronic obstructive pulmonary disease, unspecified (ICD-10) End stage COPD ?J44.9 - Chronic obstructive pulmonary disease, unspecified (ICD-10) Surgical History (Updated 10/06/24 @ 16:05 by Mp Moreira MD) H/O bilateral oophorectomy ?Z90.722 - Acquired absence of ovaries, bilateral (ICD-10) History of abdominal hysterectomy ?Z90.710 - Acquired absence of both cervix and uterus (ICD-10) Family History (Updated 10/06/24 @ 16:06 by Mp Moreira MD) Father Alcohol dependence Liver cancer Social History (Updated 10/06/24 @ 16:07 by Mp Moreira MD) Narrative: She lives alone in [place]. She has a son who lives by in his helping out. She has a daughter Nicole who lives in [place] and comes to visit weekly. Her daughter helps her get a bath but has not been able to do that recently due to her vertigo and weakness. As noted above she has profound mobility limitations due to vertigo and dyspnea and has been essentially living on the couch for the past few weeks. Code status is DNR. Nicole is healthcare power of deputy commonwealth's attorney. She still smokes 1 or 2 cigarettes a day. She does not drink alcohol. What is your current living situation?: I presently have a place to live Problems where you live: no known problems Problems where you live details: none listed In the past 12 months, utilities in danger of being shut off: no In past 12 months, lack of transportation kept you from medical appts, meetings, work, or getting things needed for daily living: no In the past 12 mos, have been you worried that your food would run out before you had money to buy more?: never true In the past 12 mos, the food you bought just didn't last and you didn't have money to buy more?: never true Highest level of school completed/degree received: Associate degree: occupational, technical, vocational program Smoking Status: Current every day smoker What tobacco products do you use: cigarettes Do you use any of these nicotine containing products: None Second hand tobacco smoke exposure: Yes How often do you have a drink containing alcohol: never How often do you have six or more drinks on one occasion: Never AUDIT-C Alcohol total score: 0 Non-prescribed substance use: denies use Non-prescribed substance use details: pt states used marijuana as teenager Caffeine: Yes (coffee) How often does anyone, including family, friends and others, physically hurt you : never How often does anyone, including family, friends and others, insult or talk down to you: never How often does anyone, including family, friends and others, threaten you with harm: never How often does anyone, including family, friends and others, scream or curse at you: never service: No Meds Home Medications and Allergies Home Medications ?Medication ?Instructions ?Recorded ?Confirmed ?Type albuterol sulfate 90 mcg/actuation 2 inh inhalation Q6H PRN 10/06/24 10/06/24 History aerosol inhaler (Ventolin HFA) budesonide 0.5 mg/2 mL suspension 0.5 mg inhalation Q12H 10/06/24 10/06/24 History for nebulization cyclobenzaprine 10 mg tablet 10 mg PO TID 10/06/24 10/06/24 History docusate sodium 100 mg capsule 100 mg PO DAILY 10/06/24 10/06/24 History gabapentin 100 mg capsule 100 mg PO TID 10/06/24 10/06/24 History guaifenesin 600 mg tablet, mg PO 10/06/24 History extended release 12 hr ibuprofen 600 mg tablet 600 mg PO Q12H 10/06/24 10/06/24 History ropinirole 0.5 mg tablet 0.5 mg PO DAILY 10/06/24 10/06/24 History Allergies Allergy/AdvReac Type Severity Reaction Status Date / Time amitriptyline Allergy Mild hallucinate Verified 10/06/24 08:31 s Exam Narrative: Exam Narrative: She is alert and appears in mild to moderate respiratory distress. On oxygen at 3 L per nasal cannula she is tachypneic. She has pursed lip breathing. She is oriented to her circumstances. She gives her own history. Head is without trauma. Eyes normal. Oropharynx mostly edentulous but for her lower incisors which are badly decayed. Neck is supple without mass or adenopathy. Respirations with marked decreased breath sounds in all lung thompson. Prolonged expiratory phase. No marked wheezing. Cardiovascular: S1, S2, regular tachycardia. No murmur gallop or rub. Distant heart sounds. Abdomen: Bowel sounds active. Abdomen is soft without tenderness or mass. External genitalia normal. Extremities without edema. She has diminished but intact pedal pulses. Feet are cool to touch. No ulcerations or skin changes noted. She moves all 4 extremities well. Const: Vital Signs, click to edit/add: Vital Signs - 24 hr 10/06/24 08:19 Temperature 98.8 F Pulse Rate [Pulse Oximeter] 101 H Respiratory Rate 24 Blood Pressure [Ri ght Upper Arm] 142/79 H Pulse Oximetry 97 Oxygen Delivery Me thod Nasal Cannula Oxygen Flow Rate 2 Documenting provider has reviewed patient's vital signs: yes Hospitalist - H&P: Result Labs Labs: Short CBC 10/06/24 Range/Units 12:03 WBC 5.92 (4.50-11.00) K/uL Hgb 13.6 (12.0-16.0) gm/dL Hct 43.6 (33.0-51.0) % Plt Count 226 (140-440) K/uL BMP 10/06/24 12:03 Sodium 138 Potassium 4.6 Chloride 98 Carbon Dioxide 37 H BUN 15 Creatinine 0.4 L Glucose 117 H Calcium 9.4 Imaging Chest x-ray: Radiologist's impression: INDICATION: COPD COMPARISON: 09/01/2021 chest radiograph TECHNIQUE: Single frontal radiographic view(s) of the chest. FINDINGS: No substantial pleural effusion. Hyperexpanded lungs. No definite focal pulmonary consolidation. Normal heart size. There are osseous degenerative changes. IMPRESSION: Hyperexpanded lungs. No definite focal pulmonary consolidation. CT scan - head: Radiologist's impression: INDICATION: VERTIGO, GENERALIZED WEAKNESS. TECHNIQUE: Head CT without contrast. COMPARISON: None. FINDINGS: CSF spaces: Within normal limits for age. Brain parenchyma and extra-axial spaces: There are nonspecific low attenuation white matter changes consistent with chronic microvascular disease. No sign of mass, hemorrhage, or midline shift. Skull base and calvarium: The visualized paranasal sinuses and mastoid air cells demonstrate no acute or significant findings. The visualized orbits are grossly unremarkable. No skull fractures. IMPRESSION: No acute intracranial process identified.. Please note that all CT scans at this facility use dose modulation, iterative reconstruction, and/or weight-based dosing when appropriate to reduce radiation dose to as low as reasonably achievable. Assessment and Plan Assessment and plan (1) Pulmonary cachexia due to chronic obstructive pulmonary disease: Problem comment: Severe end-stage lung disease and now cachexia. Discussed palliative care and hospice. Status: Acute (2) End stage COPD: Problem comment: Patient has hypoxia and requiring oxygen. Also CO2 retention. Will need to be cautious with supplemental oxygen. At this time will do 2 L per nasal cannula at rest and 4 L per nasal cannula with activity. Trial prednisone for symptomatic relief. Status: Acute (3) Weakness: Problem comment: No longer able to care for herself. Need residential facility Status: Acute (4) Impaired mobility: Problem comment: PT and OT to evaluate Status: Acute (5) Vertigo: Problem comment: I offered to do further evaluation of her vertigo including MRI but she tells me she can not tolerate an MRI in his refusing. Status: Acute (6) Tobacco use disorder: Problem comment: Nicotine patch. Encourage smoking cessation Status: Acute (7) Discharge planning issues: Problem comment: Patient is no longer able to care for herself. Will engage child welfare social worker to help determine alternative disposition plan. Status: Acute Plan Patient admitted to the hospital for management of COPD, vertigo, disability, cachexia, ongoing palliative care discussion and discharge planning. Continue pending safe discharge plan Total Time Spent Total Time Spent: Total time spent today is 80 minutes, reviewing outside records, past medical history and discussing with patient, daughter, other providers management of end-stage COPD, cachexia and disability
[2024-10-06 15:31] LABS: HCO3 VBG 37 mmol/L (21-28); PO2 VBG 47.7 mmHG (25-47); pH VBG 7.386 (7.32-7.43)
[2024-10-06 15:36] VITALS: RESP 24; O2SAT 93
[2024-10-06 15:39] LABS: PCO2 VBG 61 mmHG (40-50)
[2024-10-06 15:41] VITALS: BP 173/101; PULSE 110; RESP 26; TEMP 36.7; O2SAT 93; BMI 15.3
--- NOTE | 2024-10-06 16:04 | RESP.RT ---
Pt here for placement, end stage COPD Is on Chronic oxygen. Continue with home neb routine and oxygen.
[2024-10-06 16:06] LABS: Troponin I* < 0.01 ng/mL (0.01-0.04)
[2024-10-06] MEDS: diphenhydrAMINE 25 MG CAPSULE PO (16:14)
[2024-10-06] MEDS: GABAPENTIN 100 MG CAPSULE PO ×2 (16:14→21:55)
[2024-10-06] MEDS: predniSONE 20 MG TABLET PO (16:14)
[2024-10-06] MEDS: IPRAT-ALBUT 0.5-2.5 MG/3 ML NEB 1 NEB IH ×2 (16:15→21:54)
[2024-10-06 16:43] LABS: Thyroid Stimulating Hormone* 0.351 uIU/mL (0.270-4.20)
[2024-10-06] MEDS: NICOTINE 7 MG PATCH 1 PATCH TRANSDERMA (18:11)
[2024-10-06 18:48] LABS: Magnesium* 2.1 mg/dL (1.5-2.6)
[2024-10-06 18:58] LABS: NT Pro B Type NatriureticPept* 268 pg/mL
[2024-10-06 19:00] VITALS: BP 117/78; PULSE 95; RESP 22; TEMP 36.6; O2SAT 92
[2024-10-06] MEDS: ROPINIROLE HCL 1 MG TABLET 0.5 MG PO (21:54)
[2024-10-06] MEDS: guaiFENesin 600 MG TAB.ER.12H PO (21:55)
[2024-10-06] MEDS: CYCLOBENZAPRINE HCL 10 MG TABLET PO (21:55)
[2024-10-06] MEDS: SODIUM CHLORIDE 0.9 % (FLUSH) 10 ML SYRINGE 5 ML IVF (21:56)
[2024-10-06] MEDS: LORazepam 0.5 MG TABLET PO (22:09)
[2024-10-06 23:00] VITALS: BP 131/83; PULSE 100; RESP 18; RESP 20; TEMP 36.7; O2SAT 90; O2SAT 96
[2024-10-06] MEDS: DOCUSATE SODIUM 100 MG CAPSULE PO (23:31)
[2024-10-07 03:00] VITALS: BP 115/55; PULSE 88; RESP 16; TEMP 37; O2SAT 100
[2024-10-07 06:41] LABS: HCO3 VBG 40 mmol/L (21-28); PO2 VBG 38.7 mmHG (25-47); pH VBG 7.295 (7.32-7.43)
[2024-10-07 06:46] LABS: PCO2 VBG 82 mmHG (40-50)
[2024-10-07 09:34] VITALS: PULSE 94; RESP 12; O2SAT 86; O2SAT 89
[2024-10-07 09:34] LABS: Albumin* 3.5 g/dL (3.3-5.0)
[2024-10-07 09:37] LABS: Alanine Aminotransferase* 24 U/L (4-35); Alkaline Phosphatase* 105 U/L (40-150); Aspartate Amino Transferase* 33 U/L (12-35); Bilirubin Direct* 0.2 mg/dL (0.0-0.5); Bilirubin Total* 0.2 mg/dL (0.1-1.5); Total Protein* 6.1 g/dL (6.0-8.3)
[2024-10-07] MEDS: BUDESONIDE 0.5 MG/2ML NEB NEB ×2 (09:42→21:24)
[2024-10-07] MEDS: predniSONE 20 MG TABLET PO (09:42)
[2024-10-07] MEDS: GABAPENTIN 100 MG CAPSULE PO ×3 (09:42→21:23)
[2024-10-07] MEDS: CYCLOBENZAPRINE HCL 10 MG TABLET PO ×3 (09:42→21:23)
[2024-10-07] MEDS: DOCUSATE SODIUM 100 MG CAPSULE PO (09:42)
[2024-10-07] MEDS: MULTIVITAMIN/MINERALS 1 TABLET 1 TAB PO (09:42)
[2024-10-07 10:47] VITALS: BMI 15.1
[2024-10-07 11:00] VITALS: BP 156/95; PULSE 103; RESP 21; O2SAT 94
--- NOTE | 2024-10-07 11:26 | PC.SOCIAL ---
Addendum entered by ANTONY Walters 10/07/24 16:39: Discharge planning: hollow handle bench worker contacted the following [facility], which are located in [place] [facility] with the following results: 1.) [facility] in [facility]) #[phone]: left a message with Nany in Admissions requesting a call back on availability. 2.) [facility] in [facility]) #[phone]: Requested this worker call back on Friday between 8-3pm for Admissions staff(could not leave a message). 3.) [facility] in [facility]) #[phone]: Left a message with May in Admissions requesting a call back on bed availability. 4.) [facility] in [facility]) #[phone]: Spoke to Jessica in Admissions, they have openings, faxed referral to fax #[phone]. 5.) [facility] in [facility]) #[phone]: Left a message with Admissions requesting a call back on bed availability. 6.) [facility] in [facility]) #[phone]: Left a message with Admissions requesting a call back on bed availability. 7.) [facility] in [facility]) #[phone]: They have openings. Faxed referral to fax #[phone] and also secure emailed the referral to [email or web address]. 8.) [facility] in [facility]) #[phone]: Left a message with Luis A in Admissions requesting a call back on bed availability. 9.) [facility] #[phone]: Left a message with Admissions requesting a call back on bed availability. hollow handle bench worker also left a follow-up message with Radha in Admissions at [facility] in [place] #[phone] requesting an update on the referral that was faxed to her yesterday. Social work to follow-up as needed. Addendum entered by KADEEM Castillo 10/07/24 12:17: Spoke with dtr, by phone who is appreciative of efforts being made for placement. Explained the concern about pt's insurance not being contracted with facilities in this area and that some facilities are not willing to accept her because of this. Although dtr would prefer to have pt placed in any of the facilities social sciences professor has already contacted, she is requesting social worked contact any assisted facility in the [facility] that are contracted with pt's insurance for placement from the hospital. Pt's insurance rater, Aleida [phone], states there is not list of contracted SNF facilities but that all SNF facilities in [facility] are contracted with [facility] insurance. hollow handle bench worker to follow up as needed. Addendum entered by KADEEM Castillo 10/07/24 11:48: Continuing from previous note: 20. Called [facility] and discussed this pt's need with Stephanie in admissions. They are unable to accept this pt for admit. Original Note: Discharge planning: hollow handle bench worker has contacted these SNF facilities on 10/06/24 and 10/07/24 at request of pt and family with the listed results: 1. [facility] - refused admit, based on not having a contract with her insurance and not being interested in exploring that option. 2. [facility] - refused admit, stating they have a bed opening up but are refusing pt based on not having a contract with her insurance and not being interested in exploring that option. 3. [facility] in [place], no bed available. 4. [facility], , spoke with Radha and faxed ([phone]) requested information for review. Awaiting call back with decision on admit. 5. [facility] [phone] and left message requesting call back with bed availability. 6. [facility], no bed available 7. [facility] - no bed available. 8. [facility], no bed available. 9. [facility]- left multiple messages requesting information on bed availability [phone]. This facility will be contracted with pt's insurance. 10. [facility] - Information sent to Jon Donovan, , food and beverage coordinator for [place] requesting evaluation for admit. 11. [facility] - Information sent to Jon Donovan, , food and beverage coordinator for [place] requesting evaluation for admit. 12. [place] [id number]- Information sent to Jon Donovan, , food and beverage coordinator for [place] requesting evaluation for admit. 13. [facility] - [phone] left message requesting call back with bed availability. 14. [facility] - [phone] left message requesting call back with bed availability. 15. [facility] - [phone] left message requesting call back with bed availability. 16. [facility] - will not consider pt for admit due to insurance not being contracted already with the facility. 17. [facility] [place] [phone] left message requesting call back with bed availability. 18. [facility], will not consider pt for admit due to insurance not being contracted already with the facility. 19. [facility] - unable to consider pt for admit due to pt not having a dementia diagnosis. Social work to follow up as needed.
--- NOTE | 2024-10-07 11:49 | PM.IMPN1 ---
Progress Note: A&P Assessment and plan (1) Pulmonary cachexia due to chronic obstructive pulmonary disease: Problem details: - severe end stage lung disease - cachexia, unable to perform ADLs - understands that palliative care/hospice are options Status: Acute (2) End stage COPD: Problem details: - hypoxia with hypercarbia - monitor closely for CO2 retention (CO2 in the 80s 10/07/24) - supplemental oxygen with goal 85-88% Status: Acute (3) Weakness: Problem details: - therapies Status: Acute (4) Impaired mobility: Problem details: - PT and OT to evaluate Status: Acute (5) Vertigo: Problem details: - declined MRI - much improved after PT (BPPV treatment) Status: Acute (6) Tobacco use disorder: Problem details: - Nicotine patch. Encourage smoking cessation Status: Acute (7) Discharge planning issues: Problem details: - patient unable to perform ADLs given severe COPD and dyspnea Status: Acute Plan - per above -sister and daughter updated at bedside, questions answered Subjective Date Seen: 10/07/24 Interval history: Caitlin was admitted to the hospital last night for severe vertigo, frailty with failure to thrive, severe COPD. She has had a decline at home over the past few months, noting vertigo for the last 3-4 weeks with significant worsening about a week ago. Has fallen at home a few times, no head injuries. Family had been working on placement for her as an outpatient and were unsuccessful. She rarely leaves her couch at home, unable to make food and perform ADLs given her severe dyspnea. Wears 4L of supplemental oxygen at baseline. This morning, Co2 was >80. Working with therapies, SW assessing for placement options. Exam Narrative: Exam Narrative: GEN: Sitting up in bed, cachectic. Pursed lip breathing, 2-3 word dyspnea HEENT: EOMIs bilaterally, no scleral icterus CV: RRR, No concerning murmurs, rubs, or gallops R: Decreased breath sounds throughout bilateral lung thompson Ext: wwp, no concerning edema Neuro: Nonfocal Psych: Appropriate Const: Vital Signs, click to edit/add: Vital Signs - 24 hr 10/06/24 15:36 10/06/24 15:41 10/06/24 19:00 Temperature 98.1 F 97.8 F Pulse Rate [Right Brachial] 110 H 95 Respiratory Rate 24 26 H 22 Blood Pressure [Ri ght Arm] 173/101 H 117/78 Pulse Oximetry 93 93 92 Oxygen Delivery Me thod Nasal Cannula Nasal Cannula Nasal Cannula Oxygen Flow Rate 2 93 1 10/06/24 23:00 10/06/24 23:00 10/07/24 03:00 Temperature 98.0 F 98.6 F Pulse Rate [Right Brachial] 100 88 Respiratory Rate 18 20 16 Blood Pressure [Ri ght Arm] 131/83 115/55 L Pulse Oximetry 96 90 100 Oxygen Delivery Me thod Nasal Cannula Nasal Cannula Oxygen Flow Rate 2 4 2 10/07/24 09:34 10/07/24 09:34 Temperature Pulse Rate [Right Brachial] 94 Respiratory Rate 12 Blood Pressure [Ri ght Arm] Pulse Oximetry 86 L 89 Oxygen Delivery Me thod Nasal Cannula Nasal Cannula Oxygen Flow Rate 1 1 Labs Labs: Laboratory Results - last 24 hr 10/06/24 10/06/24 10/07/24 12:03 15:29 06:20 WBC 5.92 RBC 4.39 Hgb 13.6 Hct 43.6 MCV 99 MCH 31 MCHC 31 L RDW Coeff of Timoteo 11.8 Plt Count 226 Neut % (Auto) 89.2 H Lymph % (Auto) 6.9 L [place] % (Auto) 3.2 Eos % (Auto) 0.2 Baso % (Auto) 0.5 Neut # (Auto) 5.30 Lymph # (Auto) 0.40 L [place] # (Auto) 0.20 Eos # (Auto) 0.01 Baso # (Auto) 0.03 Abs Immat Gran (auto) 0.00 Imm/Tot Granulo (auto) 0.0 VBG pH 7.386 7.295 L VBG pCO2 61 H* 82 H* VBG pO2 47.7 H 38.7 VBG HCO3 37 H 40 H Sodium 138 Potassium 4.6 Chloride 98 Carbon Dioxide 37 H Anion Gap 3 L BUN 15 Creatinine 0.4 L Estimated Creat Clear 29.71 Estimated GFR 110 Glucose 117 H Calcium 9.4 Magnesium 2.1 Total Bilirubin 0.2 Direct Bilirubin 0.2 AST 33 ALT 24 Alkaline Phosphatase 105 Troponin I < 0.01 L NT-Pro-B Natriuret Pep 268 Total Protein 6.1 Albumin 3.5 TSH 0.351 Lab Acknowledgement 10/07/24 09:17 WBC RBC Hgb Hct MCV MCH MCHC RDW Coeff of Timoteo Plt Count Neut % (Auto) Lymph % (Auto) [place] % (Auto) Eos % (Auto) Baso % (Auto) Neut # (Auto) Lymph # (Auto) [place] # (Auto) Eos # (Auto) Baso # (Auto) Abs Immat Gran (auto) Imm/Tot Granulo (auto) VBG pH VBG pCO2 VBG pO2 VBG HCO3 Sodium Potassium Chloride Carbon Dioxide Anion Gap BUN Creatinine Estimated Creat Clear Estimated GFR Glucose Calcium Magnesium Total Bilirubin Direct Bilirubin AST ALT Alkaline Phosphatase Troponin I NT-Pro-B Natriuret Pep Total Protein Albumin TSH Lab Acknowledgement Test Added
[2024-10-07] MEDS: IPRAT-ALBUT 0.5-2.5 MG/3 ML NEB 1 NEB IH ×3 (12:11→21:43)
[2024-10-07] MEDS: LORazepam 0.5 MG TABLET PO (14:43)
[2024-10-07 15:00] VITALS: BP 143/85; PULSE 108; PULSE 94; RESP 20; TEMP 36.9; O2SAT 91; O2SAT 94
[2024-10-07] MEDS: NICOTINE 7 MG PATCH 1 PATCH TRANSDERMA (16:47)
--- NOTE | 2024-10-07 17:29 | PC.NURSE ---
Nursing Care Hours: [id number] Pt this shift slept in until 930. Slightly HTN without symptoms. Deep breaths normal rate. Spo2 decreased from 4L NC to 1L d/t elevated CO2. Pt remained above 90%. Up in chair most of day. Family assisted pt with shower. Nicotine patch missing from L shoulder before shower. Could not find in the sheets or chair. Reported to oncoming nurse. Pt took a home ativan that was in purse before shower. Pt reported this to marine underwriter and marine underwriter documented it on the MAR. Also discussed with pt and family the policy on taking medications at the hospital and rationale. Pt and family verbalize understanding and states that was the last pill that was on pt.
[2024-10-07 19:00] VITALS: BP 143/76; PULSE 114; RESP 18; TEMP 37.1; O2SAT 96
[2024-10-07] MEDS: ROPINIROLE HCL 1 MG TABLET 0.5 MG PO (21:23)
[2024-10-07] MEDS: guaiFENesin 600 MG TAB.ER.12H PO (21:23)
[2024-10-07 23:00] VITALS: BP 140/78; PULSE 90; RESP 16; RESP 18; TEMP 37; O2SAT 93
--- NOTE | 2024-10-07 23:41 | PC.NURSE ---
Pt alert, oriented and vitally stable, though slightly tachycardic. Pt states anxiety with the o2 thurnned down, placed her back on 2L o2 for comfort. Pt on regilar diet, tolerates well. Pt reminded home medications cannot be taken. Nicotine patch placed on left outer shoulder. Pt in bed, appears to be resting call light within reaach.
[2024-10-08 03:00] VITALS: BP 135/78; PULSE 97; RESP 20; TEMP 36.9; O2SAT 90
[2024-10-08 06:30] LABS: HCO3 VBG 41 mmol/L (21-28); PO2 VBG < 30.1 mmHG (25-47); pH VBG 7.319 (7.32-7.43)
[2024-10-08 06:40] LABS: PCO2 VBG 80 mmHG (40-50)
[2024-10-08 06:50] LABS: Chloride* 98 mmol/L (96-114); Potassium* 4.4 mmol/L (3.6-5.1); Sodium* 139 mmol/L (135-149)
--- NOTE | 2024-10-08 06:52 | PC.NURSE ---
00: The patient is pleasant, although becomes anxious at times regarding SOB and O2 level even when at rest. Titrated O2 down to 0.5 L per O2 parameters. Call light within reach. Pivot to commode due to activity intolerance. ? Gala OHLLIDAY BSN
[2024-10-08 06:53] LABS: Blood Urea Nitrogen* 19 mg/dL (7-30); Calcium* 8.4 mg/dL (8.4-10.6); Creatinine* 0.5 mg/dL (0.5-1.5); Est. Creatinine Clearance* 32.61; Estimated Glomerular Filt Rate 105 ml/min; Glucose* 94 mg/dL (60-115)
[2024-10-08 07:00] LABS: Anion Gap 3 mEq/L (7-15); Carbon Dioxide* 38 mmol/L (20-32)
[2024-10-08 08:05] VITALS: BP 172/94; PULSE 87; RESP 18; RESP 20; TEMP 36.6; O2SAT 90
[2024-10-08] MEDS: GABAPENTIN 100 MG CAPSULE PO ×2 (09:05→13:32)
[2024-10-08] MEDS: MULTIVITAMIN/MINERALS 1 TABLET 1 TAB PO (09:05)
[2024-10-08] MEDS: predniSONE 20 MG TABLET PO (09:05)
[2024-10-08] MEDS: BUDESONIDE 0.5 MG/2ML NEB NEB (09:05)
[2024-10-08] MEDS: DOCUSATE SODIUM 100 MG CAPSULE PO (09:05)
[2024-10-08] MEDS: CYCLOBENZAPRINE HCL 10 MG TABLET PO ×2 (09:05→13:32)
[2024-10-08] MEDS: ONDANSETRON ODT 4 MG TAB PO (09:06)
--- NOTE | 2024-10-08 09:55 | PC.SOCIAL ---
Addendum entered by Francisca Gresham BUILDING RENTAL SUPERINTENDENT 10/08/24 13:21: Met with pt and family in room. Pt is requesting discharge to [facility]. Dtr is requesting transport by non emergency EMS and is aware that if not covered by her insurance, pt will be billed for this service. Answered all dtr and pt's questions regarding d/c. Provided dtr with forms for financial POA and healthcare POA at her request. Pt and family are pleased with discharge plan to [facility] today by EMS. Original Note: Discharge planning: Pt has been accepted to [facility] and [facility] to a shared room for admit today by 2:00pm. Called dtr who states she will talk with family and pt and make a decision on which facility and is requesting ambulance transport for pt at discharge. Dtr is aware that pt will receive a bill for transport if not covered by her insurance and is agreeable to this plan. layup worker to follow up as needed.
[2024-10-08] MEDS: IPRAT-ALBUT 0.5-2.5 MG/3 ML NEB 1 NEB IH (10:19)
[2024-10-08 11:09] VITALS: BP 146/97; PULSE 110; RESP 20; TEMP 36.5; O2SAT 86
[2024-10-08 11:56] VITALS: RESP 20; TEMP 36.5
--- NOTE | 2024-10-08 12:39 | PM.DS1 ---
DS: Providers Provider Date Seen: 10/08/24 Date of admission: 10/07/24 14:43 Primary care physician: Not a Local Provider Admitting Clinician: Reema Sullivan MD Consults: 10/06/24 15:29 Consult to Occupational Therapy [CONS] Routine Comment: Reason(s) for OT Consult:: Evaluate and Treat Any Restrictions?:: No Restrictions Consult to Physical Therapy [CONS] Routine Comment: Reason(s) for PT Consult:: Evaluate and Treat Any Restrictions?:: No Restrictions Consult to Respiratory Therapy [CONS] Routine Comment: Reason(s) for RT Consult:: Consult Consult to Transfer Iron Operator [CONS] Routine Comment: Reason for Consult:: Discharge Planning Needs 10/07/24 10:08 Consult to Respiratory Therapy [CONS] Routine Comment: Reason(s) for RT Consult:: Pulm Disease Info Comment: COPD, please help with breathing education, treatment recommendations, etc Attending Physician on discharge: Kris Pineda MD Date of Discharge: 10/08/24 DS: Diagnosis Discharge Diagnosis (1) End stage COPD: Status: Acute Problem details: - hypoxia with hypercarbia - monitor closely for CO2 retention (CO2 in the 80s 10/07/24) - supplemental oxygen with goal 85-88% (2) Pulmonary cachexia due to chronic obstructive pulmonary disease: Status: Acute Problem details: - severe end stage lung disease - cachexia, unable to perform ADLs - understands that palliative care/hospice are options (3) Impaired mobility: Status: Acute Problem details: - PT and OT to evaluate (4) Weakness: Status: Acute Problem details: - therapies (5) Vertigo: Status: Acute Problem details: - declined MRI - much improved after PT (BPPV treatment) (6) Osteoporosis: Status: Acute (7) Tobacco use disorder: Status: Acute Problem details: - Nicotine patch. Encourage smoking cessation (8) Frail elderly: Status: Acute (9) Discharge planning issues: Status: Acute Problem details: - patient unable to perform ADLs given severe COPD and dyspnea DS: Summary Hospital Course Hospital Course: Admission history of present illness: ?64 year old female with severe COPD and malnutrition admitted through the emergency department with inability to care for herself. She lives independently in [place]. Over the past month she has become progressively functionally disabled. She attributes this to the development of vertigo. She spends her entire day on her couch. She is no longer able to get off the couch without assistance. When she moves her head she gets a sense of the room spinning. Because of this she feels quite unsteady and so has not been moving without someone holding onto her. Because she lives alone she is only able to get to her commode when family or friend come to visit. She is unable to get to her nebulizer to get breathing treatments. She is unable to get to the kitchen to get food or water. She reports her vertigo is not a longstanding problem but has just developed and progressively gotten worse over the last month. She does report that she has some chronic decreased hearing in her left ear. She otherwise not hearing any noise in her ears. The vertigo is positional in that if she holds her head still especially if she is lying on her right side she feels fine. Extending her neck or sitting up and leaning forward trigger episodes of vertigo. She has had longstanding cachexia. Ten years ago her weight was 64 kg. Three years her weight was 47 kg. Today it is 33 kg. She denies any limitations on her appetite or gastrointestinal symptoms associated with eating. It appears this is primarily the cachexia associated with end-stage COPD... She has chronic dyspnea at rest. She has her oxygen at 3 L per nasal cannula at rest and goes up to for L per nasal cannula with any activity.. She has very poor exercise tolerance when she is able to move with assistance.? In hospital we establish that patient has CO2 retention with baseline pCO2 around 80 with pH 7.32 and bicarb 41. Goal is to try to maintain oxygen saturations 85-89% and no higher in an effort to prevent acute hypercapnic respiratory failure and acidosis. Reviewed this with patient, daughter, and son. They expressed understanding. In the course of time we were able to establish a safe discharge disposition plan for the patient. Initial short-term plan is to see if she benefits from transitional care services. Although she would like to be able to return home she understands that this is very unlikely given her limitations in association with her end-stage COPD. Have introduced to her and her daughter and son the idea of hospice services as well. Time Spent with Patient Time attestation: Total time spent providing and/or coordinating discharge services: Exam Narrative: Exam Narrative: GEN: Sitting up in bed, cachectic. Pursed lip breathing, 2-3 word dyspnea HEENT: EOMIs bilaterally, no scleral icterus CV: RRR, No concerning murmurs, rubs, or gallops R: Decreased breath sounds throughout bilateral lung thompson Ext: wwp, no concerning edema Neuro: Nonfocal Psych: Appropriate Const: Vital Signs, click to edit/add: Vital Signs - 24 hr 10/07/24 15:00 10/07/24 15:00 10/07/24 15:00 Temperature 98.5 F Pulse Rate [Right Brachial] 94 Pulse Rate [Right Pulse Oximeter] 108 H 108 H Respiratory Rate 20 20 20 Blood Pressure [Le ft Arm] 143/85 H Blood Pressure [Ri ght Arm] Pulse Oximetry 94 91 Oxygen Delivery Me thod Nasal Cannula Room Air Oxygen Flow Rate 1 10/07/24 19:00 10/07/24 23:00 10/07/24 23:00 Temperature 98.7 F 98.6 F Pulse Rate [Right Brachial] Pulse Rate [Right Pulse Oximeter] 114 H 90 Respiratory Rate 18 16 18 Blood Pressure [Le ft Arm] 143/76 H Blood Pressure [Ri ght Arm] 140/78 H Pulse Oximetry 96 93 93 Oxygen Delivery Me thod Nasal Cannula Nasal Cannula Nasal Cannula Oxygen Flow Rate 2 0.5 0.5 10/08/24 03:00 10/08/24 08:05 10/08/24 08:05 Temperature 98.5 F 97.9 F Pulse Rate [Right Brachial] Pulse Rate [Right Pulse Oximeter] 97 87 Respiratory Rate 20 20 20 Blood Pressure [Le ft Arm] Blood Pressure [Ri ght Arm] 135/78 172/94 H Pulse Oximetry 90 90 90 Oxygen Delivery Me thod Nasal Cannula Nasal Cannula Nasal Cannula Oxygen Flow Rate 0.5 0.5 0.5 10/08/24 08:05 10/08/24 11:09 10/08/24 11:56 Temperature 97.7 F 97.7 F Pulse Rate [Right Brachial] Pulse Rate [Right Pulse Oximeter] 110 H Respiratory Rate 18 20 20 Blood Pressure [Le ft Arm] Blood Pressure [Ri ght Arm] 146/97 H Pulse Oximetry 86 L Oxygen Delivery Me thod Nasal Cannula Oxygen Flow Rate 1 DS: Data Data Completed and Pending Labs on day of discharge: Labs from last 24 hours 10/08/24 06:18 VBG pH 7.319 L VBG pCO2 80 H* VBG pO2 < 30.1 VBG HCO3 41 H Sodium 139 Potassium 4.4 Chloride 98 Carbon Dioxide 38 H Anion Gap 3 L BUN 19 Creatinine 0.5 Estimated Creat Clear 32.61 Estimated GFR 105 Glucose [address] scan - head: Radiologist's impression: FINDINGS: CSF spaces: Within normal limits for age. Brain parenchyma and extra-axial spaces: There are nonspecific low attenuation white matter changes consistent with chronic microvascular disease. No sign of mass, hemorrhage, or midline shift. Skull base and calvarium: The visualized paranasal sinuses and mastoid air cells demonstrate no acute or significant findings. The visualized orbits are grossly unremarkable. No skull fractures. IMPRESSION: No acute intracranial process identified.. Chest x-ray: Radiologist's impression: FINDINGS: No substantial pleural effusion. Hyperexpanded lungs. No definite focal pulmonary consolidation. Normal heart size. There are osseous degenerative changes. IMPRESSION: Hyperexpanded lungs. No definite focal pulmonary consolidation. Discharge Plan Discharge Disposition: [facility] Date of Admission: 10/07/24 14:43 Attending Provider on Discharge: Kris Pineda Primary Care Provider: Provider,Not a Local Condition: Stable Anticipated Discharge Date/Time: 10/08/24 13:00 Discharge Medications: New acetaminophen 325 mg Tablet 650 mg PO Q4H PRN30 Days Qty: 60 0RF ipratropium-albuterol 0.5 mg-3 mg(2.5 mg base)/3 mL Solution For Nebulization 3 ml inhalation Q6H 30 Days Qty: 60 1RF albuterol sulfate 2.5 mg /3 mL (0.083 %) Solution For Nebulization 2.5 mg NEB Q6H PRN30 Days Qty: 60 0RF ibuprofen 200 mg Tablet 200 mg PO BID PRN30 Days Qty: 30 1RF prednisone 5 mg tablet 5 mg PO DIRECTED Qty: 32 0RF Rx Instructions: 4 tabs orally once daily x 2 days, then 3 tabs orally once daily x 4 days, then 2 tabs orally once daily x 4 days, then 1 tab orally once daily x4 days, then stop. Continued cyclobenzaprine 10 mg tablet 10 mg PO TID ropinirole 0.5 mg tablet 0.5 mg PO DAILY docusate sodium 100 mg capsule 100 mg PO DAILY budesonide 0.5 mg/2 mL suspension for nebulization 0.5 mg inhalation Q12H Patient Comments: [NO ORIGINAL SIG] gabapentin 100 mg capsule 100 mg PO TID guaifenesin 600 mg tablet extended release 12hr PO Discontinued ibuprofen 600 mg tablet 600 mg PO Q12H albuterol sulfate [Ventolin HFA] 90 mcg/actuation HFA aerosol inhaler 2 inh INHALATION Q6H PRN Patient Comments: [NO ORIGINAL SIG] Discharge Orders: Discharge Order (Routine); Ordered 10/08/24 Ordered By: Kris Pineda Additional Instructions: 1. Oxygen saturation goal of 85-89% - patient can develop acute hypercapnic respiratory failure if oxygen saturation levels are too high 2. Consider long-term living options based upon response to rehabilitation efforts 3. Consider hospice services Activity Level: Activity as Tolerated Discharge Diet: High Protein/High Calorie Follow Up Appointments: Provider,Not a Local [Primary Care Provider] - Forms: [facility] Info Instructions Admit to: SNF Discharge Potential: Fair Length of Stay: <30 days Can use facility standing orders?: No Code Status: DNR/DNI Rehab Potential: Fair Therapy: Physical Therapy and Occupational Therapy Therapy Orders: Evaluate and Treat Therapy Orders Additional Information: Apply pulmonary rehabilitation principles with therapies Oxygen: Yes Oxygen Delivery Method: Nasal Cannula Oxygen Flow Rate: 1-4 LPM via NC to maintain resting O2 saturation 85-89% Urinary Catheter: No Orders are good >30 days: Yes Signature: Kris Pineda
--- NOTE | 2024-10-08 13:38 | PC.NURSE ---
Pt alert and oriented. Pt up with SBA with walker and gait belt. Pt's oxygen saturations have been 85-885 per parameters. Pt's family at bedside. No IV in place. Pt discharged to [facility] in [place] and brought via EMS.
== END 2024-10-08 13:44 | DRG 140 ==
LOC: ED 13:06 → MEDSURG 13:27
PROVIDERS: Family Medicine; Admitting Provider Family Medicine; Emergency Provider Emergency Medicine Emergency Medical Services; Visit Provider Family Medicine
DX: J44.1 Chronic obstructive pulmonary disease with (acute) exacerbation (principal); E43 Unspecified severe protein-calorie malnutrition; Z68.1 Body mass index [BMI] 19.9 or less, adult; E88.A Wasting disease (syndrome) due to underlying condition; R06.03 Acute respiratory distress; R09.02 Hypoxemia; F17.210 Nicotine dependence, cigarettes, uncomplicated; Z99.81 Dependence on supplemental oxygen; R62.7 Adult failure to thrive; Z74.09 Other reduced mobility; R53.1 Weakness; R42 Dizziness and giddiness; M32.9 Systemic lupus erythematosus, unspecified; M81.0 Age-related osteoporosis without current pathological fracture
CPT/HCPCS: 36415; 70450; 71045; 80048; 80076; 82803; 83735; 83880; 84443; 84484; 85025; 93005; 97112; 97116; 97161; 97166; 97535; 99284; 99285; A9153; A9270; G0378; J7512; J7626; S4990

== ENCOUNTER 2024-10-08 13:37 | Outpatient (CLI) | payer OTHER, SELFPAY | END 2024-10-08 13:38 | disposition home or self-care (01) | LOC: AMB 10-17 06:15 | PROVIDERS: Visit Provider Student in an Organized Health Care Education/Training Program | DX: J44.9 Chronic obstructive pulmonary disease, unspecified (principal); R53.1 Weakness | CPT/HCPCS: A0425; A0428 ==